=== PATIENT | male | born 1935 | race Caucasian/White ===

== ENCOUNTER 2019-06-21 10:32 | Inpatient (IN) | payer MEDICARE, BC, OTHER ==
[~2019-06-21] VITALS: Ht 170.2 cm; Wt 94.3 kg
[2019-06-21 16:28] VITALS: BP 149/73
[2019-06-21] MEDS ORDERED: QUIN40TA26 PO (17:00)
[2019-06-21] MEDS ORDERED: ALLO100T PO (17:00)
[2019-06-21] MEDS ORDERED: OMEP10CA78 PO (17:00)
[2019-06-21] MEDS ORDERED: MIRA0.5T PO (17:00)
[2019-06-21] MEDS ORDERED: HYDR25TAB PO (17:00)
[2019-06-21] MEDS ORDERED: CELE1CAP7 PO (17:00)
[2019-06-21] MEDS ORDERED: TRAM50TA2 PO (17:09)
[2019-06-21] MEDS ORDERED: LIDO5DIS41 TD (17:09)
[2019-06-21] MEDS ORDERED: APAP325T4 PO (17:09)
[2019-06-21] MEDS ORDERED: MIRA1TAB3 PO (17:09)
[2019-06-21] MEDS ORDERED: PANT40TA3 PO (17:09)
[2019-06-21] MEDS ORDERED: HYDR-3713 PO (17:09)
[2019-06-21] MEDS ORDERED: CLIN1INJ IV (17:11)
[2019-06-21] MEDS ORDERED: CEFTINJ IV (17:11)
[2019-06-21] MEDS ORDERED: traMADol 50 MG TAB PO PRN (17:30)
[2019-06-21] MEDS: PIPERACILLIN/TAZOBACTAM SOD 3.375 GM in D5W MINI-BAG PLUS 50 ML IV SCH (18:45)
[2019-06-21 18:48] LABS: HEMATOCRIT 41.8 % (42.0-52.0); HEMOGLOBIN 14.5 g/dl (13.5-17.5); MEAN CORPUSCULAR HEMOGLOBIN 34.7 pg (27.0-33.0); MEAN CORPUSCULAR HGB CONC 34.7 g/dl (32.0-36.5); PLATELET COUNT, AUTOMATED 179 10^3/uL (150-450); RED BLOOD COUNT 4.18 10^6/uL (4.30-6.10); WHITE BLOOD COUNT 11.2 10^3/uL (4.0-10.0)
[2019-06-21 19:11] LABS: INR 1.22; PROTHROMBIN TIME 15.1 SECONDS (11.8-14.0)
[2019-06-21 19:19] LABS: ALBUMIN 1.9 GM/DL (3.2-5.2); ALT/SGPT 38 U/L (12-78); BILIRUBIN,TOTAL 1.1 MG/DL (0.2-1.0); BLOOD UREA NITROGEN 25 MG/DL (7-18); CALCIUM LEVEL 8.6 MG/DL (8.8-10.2); CARBON DIOXIDE LEVEL 25 MEQ/L (21-32); CHLORIDE LEVEL 109 MEQ/L (98-107); CREATININE FOR GFR 1.12 MG/DL (0.70-1.30); GLOMERULAR FILTRATION RATE > 60.0 (>35); GLUCOSE, FASTING 105 MG/DL (70-100); POTASSIUM SERUM 3.9 MEQ/L (3.5-5.1); SODIUM LEVEL 140 MEQ/L (136-145); TOTAL PROTEIN 5.6 GM/DL (6.4-8.2)
[2019-06-21] MEDS ORDERED: ISOVUE-370 76% 100ML VIAL (Q9967) As Ordered ONE (19:29)
[2019-06-21] MEDS ORDERED: VANCOMYCIN HCL 750 MG, VIAL MATE ADAPTER 1 EACH in D5W 250 ML IV ONE (20:00)
--- NOTE | 2019-06-21 20:09 | HPEPDOC ---
General Date of Admission Jun 21, 2019 at 16:34 Date of Service: Jun 21, 2019 Attending Physician: SELENE JOHNSON MD Chief Complaint The patient is a 83-year-old male admitted with a reason for visit of Progessive Cellulitis. Source: Patient Exam Limitations: No limitations Timing/Duration: Day(s) Severity: Severe History of Present Illness 83 yo M with a history of PVD, gout, hemochromatosis who presents as a transfer from [facility] for worsening RLE cellulitis with c/f necrotizing fasciitis +/- vascular comprise. He was admitted at [facility] for cellulitis during which he was noted to have RLE erythema to the subknee that was hot to touch. He had a CT of the extremity that showed subcutaneous edema and skin thickening but no evidence of SQ gas and no drainable fluid. He was initially placed on empiric zosyn but after blood cultures and RLE wound cultures grew pansensitive Ecoli he was de-escalated to ceftriaxone. On day 5 he was noted to have markedly worsening of the erythema now tracking to the groin and buttocks with several bullae one of which had burst and was weeping in addition to the black/semi eschar midshin wound and plantar subgreat toe wounds that were present at presentation. He was otherwise afebrile and WBC remained mildly elevated to 10.6 with a CRP of [address] Zapata at [facility] requested his transfer with concern for necrotizing fasciitis and for evaluation by surgical services. On arrival, his leg was exquisitely painful. The wounds were as described above and firm erythematous skin and non-palpable RLE DP pulse, while it had 3+ edema to to the thighs. Home Medications Scheduled Allopurinol (Allopurinol) 100 Mg Tablet, 100 MG PO DAILY, (Reported) Ceftriaxone in Is-Osm Dextrose (Ceftriaxone 1 gm Piggyback) 1 Gm/50 Ml Froz.maycol y, 1,000 MG IV DAILY, (Reported) Celecoxib (Celecoxib) 100 Mg Capsule, 100 MG PO BID, (Reported) Clindamycin in 0.9 % Sod Chlor (Clindamycin 600 mg/50 ml-Ns) 600 Mg/50 Ml Piggyback, 1 DOSE IV Q8H, (Reported) Hydrochlorothiazide (Hydrochlorothiazide) 25 Mg Tablet, 25 MG PO DAILY, (Reported) Lidocaine (Lidoderm) 5% Adh..patch, 1 PATCH TD DAILY, (Reported) Remove patch after 12 hours LOWER BACK Pantoprazole Sodium (Pantoprazole Sodium) 40 Mg Tablet.dr, 40 MG PO DAILY, (Reported) ON [id number] AT HOME Pramipexole Di-HCl (Mirapex) 0.5 Mg Tablet, 0.5 MG PO DAILY, (Reported) Pramipexole Di-HCl (Mirapex) 1 Mg Tablet, 1 MG PO DAILY, (Reported) WAS TAKING 0.5MG AT HOME Quinapril HCl (Quinapril HCl) 40 Mg Tablet, 40 MG PO DAILY, (Reported) Scheduled PRN Acetaminophen (Acetaminophen) 325 Mg Tablet, 650 MG PO Q4H PRN for PAIN, (Reported) Hydrocodone/Acetaminophen (Hydrocodone-Acetamin 5-325 mg) 1 Each Tablet, 1 TAB PO Q4H PRN for PAIN, (Reported) MDD 4 Omeprazole (Omeprazole) 10 Mg Capsule.dr, 10 MG PO DAILY PRN for GI UPSET, (Reported) Tramadol HCl (Tramadol HCl) 50 Mg Tablet, 50 MG PO Q6H PRN for PAIN, (Reported) Allergies Coded Allergies: tramadol (Unverified Allergy, Unknown, 06/21/19) Past Medical History Medical History AWA gout PVD hemochromatosis HTN PIERCE metastatic carcinoid A-FIB/CHADSVASC A-FIB History Current/History of A-Fib/PAF?: No Current PO Anticoag Therapy: No Age/Risk Factor Scoring CHADSVASC: CHADSVASC Response (Comments) Value Age Risk Factor Age >/= 75 years old 2 Gender Risk Factor Male 0 Hx of CHF No 0 Hx of HTN Yes 1 Hx of Stroke/TIA/or VTE No 0 Hx of Diabetes No 0 Hx of Vascular Disease Yes 1 Total 4 Treatment Treatment ordered: NONE Reason Anticoagulant not given: Not indicated/[id number] Review of Systems Constitutional: Denies: Chills, Fever, Night Sweats Eyes: Denies: Pain, Vision change ENT: Denies: Head Aches, Ear Pain, Dysphagia Skin: Reports: Lesions, Breakdown; Denies: Rash Pulmonary: Denies: Dyspnea, Cough Cardiovascular: Denies: Chest Pain, Palpitations, Orthopnea, Paroxysmal Noc. Dyspnea, Lt Headedness Gastrointestinal: Denies: Nausea, Vomiting, Abdominal Pain, Diarrhea Genitourinary: Reports: Other Symptoms (has jain in place for monitoring); Denies: Dysuria, Frequency, Incontinence, Retention Hematologic: Denies: Bruising, Bleeding Excessively Endocrine: Denies: Polydipsia, Polyphagia, Polyuria, Heat Intolerance, Cold Intolerance, Other Endocrine Sx Musculoskeletal: Reports: Leg Pain (RLE) Neurological: Denies: Weakness, Numbness, Change in speech, Confusion Psych: Reports: Mood Normal; Denies: Depression, Memory Issues Physical Examination General Exam: Positive: Alert, No Acute Distress Eye Exam: Positive: PERRLA, Conjunctiva & lids normal, EOMI; Negative: Sclera icteric ENT Exam: Positive: Atraumatic, Mucous membr. moist/pink, Pharynx Normal Neck Exam: Positive: Supple; Negative: JVD, thyromegaly Chest Exam: Positive: Clear to auscultation, Normal air movement Heart Exam: Positive: Rate Normal, Regular Rhythm, Normal S1, Normal S2; Negative: Murmurs, Rubs Abdomen Exam: Positive: Normal bowel sounds, Soft, Other (obese); Negative: Tenderness, Hepatospenomegaly Extremity Exam: Positive: Edema (R>>L lower extremities), Tenderness (exquisite tenderness in RLE), Swelling (RLE with firm swelling), Other (erythema now tracking to the groin and buttocks with several bullae one of which had burst and was weeping in addition to the black/semi eschar midshin wound and plantar subgreat toe wounds ); Negative: Normal pulses (not palpable on R, palpable on LLE) Skin Exam: Positive: Breakdown, Lesion, Other skin issue (erythema now tracking to the groin and buttocks with several bullae one of which had burst and was weeping in addition to the black/semi eschar midshin wound and plantar subgreat toe wounds ); Negative: Nl turgor and temperature (hot RLE, cool LLE) Neuro Exam: Positive: Normal Speech, Cranial Nerves 3-12 NL Psych Exam: Positive: Mental status NL, Mood NL, Oriented x 3 Vital Signs Vital Signs Date Time Temp Pulse Resp B/P (MAP) Pulse Ox O2 Delivery O2 Flow Rate FiO2 06/21/19 16:28 99.2 79 20 149/73 (98) 98 06/21/19 16:15 Room Air Laboratory Data Labs 24H Laboratory Tests 2 06/21/19 18:32: Nucleated Red Blood Cells % (auto) 0.0, Prothrombin Time 15.1H, Prothromb Time International Ratio 1.22, Anion Gap 6L, Glomerular Filtration Rate > 60.0, Lactic Acid Level 1.2, Calcium Level 8.6L, Total Bilirubin 1.1H, Aspartate Amino Transf (AST/SGOT) 33, Alanine Aminotransferase (ALT/SGPT) 38, Alkaline Phosphata se 114, Total Protein 5.6L, Albumin 1.9L, Albumin/Globulin Ratio 0.51L 06/21/19 18:51: CBC/BMP Laboratory Tests 06/21/19 18:32 Microbiology Microbiology 06/21/19 Blood Culture, Received Pending 06/21/19 Blood Culture, Received Pending Assessment/Plan 83 yo M with PVD who is being transferred from [facility] for worsening cellulitis with concern for necrotizing fasciitis and vascular compromise despite ceftriaxone therapy for previously identified pansensitive E.coli with open wounds suggesting possibility of further translocation of other organisms that may be ceftriaxone resistant vs. vascular challenges that are driving the infection. I have started him on empiric vanc/piptazo, consulted vascular mukherjee rgery and ordered a stat CTA, while repeating cultures. worsening RLE cellulitis with c/f nec fasciitis with chronic wounds being source of varied organisms as well significant vascular insufficiency: -stat CTA of RLE -empiric vanc/zosyn -MRSA PCR -Blood cultures -wound cultures -[place] for pain management Q4H PRN RLE wounds: -wound consult, though I imagine Dr. Skelton will give recs as well Gout: -continue allopurinol RLS: -continue pramipexole GERD: -continue protonix DVT ppx: heparin Diet: regular Plan / VTE VTE Prophylaxis Ordered?: Yes SELENE JOHNSON MD Jun 21, 2019 20:09
--- NOTE | 2019-06-21 20:36 | REPVR ---
PROCEDURE INFORMATION: Exam: CTA Right Lower Extremity With Contrast Exam date and time: 06/21/2019 7:49 PM Age: 83 years old Clinical indication: Swelling, leg or foot; Additional info: Rle c/f nec fasc with vascular compromise TECHNIQUE: Imaging protocol: CTA images of the Right lower extremity with intravenous contrast using CT angiography protocol. 3D rendering: MIP and/or 3D reconstructed images were created by the technologist. MIP and/or 3D reconstructed images were created and reviewed. Radiation optimization: All CT scans at this facility use at least one of these dose optimization techniques: automated exposure control; mA and/or kV adjustment per patient size (includes targeted exams where dose is matched to clinical indication); or iterative reconstruction. Contrast material: ISOVUE 370; Contrast volume: 100 ml; Contrast route: IV; COMPARISON: No relevant prior studies available. FINDINGS: Right iliac arteries: Atherosclerosis and less than 50% stenosis of the right common iliac artery. Right femoral/popliteal arteries: No occlusion or significant stenosis. Right infrapopliteal arteries: Atherosclerosis is identified of the right tibioperoneal trunk, without significant stenosis. No occlusion of the right infrapopliteal arteries. Bladder: There is a small focus of gas within the bladder anteriorly, which is likely iatrogenic or infectious. Wall thickening is identified of the superior aspect of the bladder, which can be contributed by cystitis although infiltrating pathology cannot be excluded. Intraperitoneal space: No peripherally enhancing loculated collection of fluid within the right lower extremity to suggest abscess. A calcified lymph node or mass is identified within the abdominal peritoneum measuring 3.1 x 2.0 cm. This extends out of the field of view of this study. There is a small amount of free fluid within the pelvis. Bones/joints: Additional swelling is identified lateral to the right hip. Small right patellofemoral joint effusion. Spurring and erosive changes identified of the 1st metatarsal head, likely secondary to arthropathy. A calcaneal spur is visualized. Osteomyelitis cannot be excluded on CT imaging. Degenerative changes are visualized involving the right knee. Soft tissues: Soft tissue swelling of the right lower extremity visualized. Skin thickening is visualized. These findings are suggestive of cellulitis. No foci of gas are identified within the soft tissues of the right lower extremity. Hypodense lipomas are identified within the medial head of the gastrocnemius muscle, the largest measuring 1.4 x 0.8 x 6.3 cm. A trophic changes are identified of the musculature of the right foot. Mild herniation of fat into the left inguinal canal. Eventration of the ventral abdominal wall with mild herniation of fat into the umbilicus. Mineralized densities visualized adjacent to the bilateral ischial tuberosities. Soft tissue swelling of the heel pad is visualized. Other findings: Enlarged inguinal lymph nodes are identified bilaterally. IMPRESSION: 1. Soft tissue swelling of the right lower extremity visualized. Skin thickening is visualized. These findings are suggestive of cellulitis. No foci of gas are identified within the soft tissues of the right lower extremity. 2. Additional swelling is identified lateral to the right hip. 3. Atherosclerosis and less than 50% stenosis of the right common iliac artery. 4. Hypodense lipomas are identified within the medial head of the gastrocnemius muscle, the largest measuring 1.4 x 0.8 x 6.3 cm. 5. Enlarged inguinal lymph nodes are identified bilaterally. 6. A calcified lymph node or mass is identified within the abdominal peritoneum measuring 3.1 x 2.0 cm. This extends out of the field of view of this study. Correlation with a CT of the abdomen/pelvis is recommended. 7. There is a small amount of free fluid within the pelvis. 8. There is a small focus of gas within the bladder anteriorly, which is likely iatrogenic or infectious. Wall thickening is identified of the superior aspect of the bladder, which can be contributed by cystitis although infiltrating pathology cannot be excluded. 9. Additional findings described above. If further evaluation of the right lower extremity is clinically indicated, MRI is suggested. PROCEDURE INFORMATION: Exam: CTA Left Lower Extremity With Contrast Exam date and time: 06/21/2019 7:49 PM Age: 83 years old Clinical indication: Swelling, leg or foot; Additional info: Rle c/f nec fasc with vascular compromise TECHNIQUE: Imaging protocol: Computed tomographic angiography of the Left lower extremity with intravenous contrast. 3D rendering: MIP and/or 3D reconstructed images were created and reviewed. COMPARISON: No relevant prior studies available. FINDINGS: Left iliac arteries: Mild atherosclerosis of the left internal iliac artery. No significant stenosis or occlusion of the left iliac arteries. 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 The left superficial femoral artery and popliteal artery are patent. Left infrapopliteal arteries: No occlusion or significant stenosis. Bladder: There is a small focus of gas within the bladder anteriorly, which is likely iatrogenic or infectious. Wall thickening is identified of the superior aspect of the bladder, which can be contributed by cystitis although infiltrating pathology cannot be excluded. Intraperitoneal space: No peripherally enhancing loculated collection of fluid within the left lower extremity to suggest abscess. A calcified lymph node or mass is identified within the abdominal peritoneum measuring 3.1 x 2.0 cm. This extends out of the field of view of this study. There is a small amount of free fluid within the pelvis. Lymph nodes: Enlarged inguinal lymph nodes are identified bilaterally. Bones/joints: Small right patellofemoral joint effusion. Spurring and erosive changes identified of the 1st metatarsal head, likely secondary to arthropathy. Osteomyelitis cannot be excluded on CT imaging. Degenerative changes are visualized involving the left knee. Soft tissues: Mild soft tissue swelling within the left lower extremity at the level of the ankle and involving the heel pad. Additional swelling is identified lateral to the left hip. No foci of gas are identified within the soft tissues of the left lower extremity. A trophic changes are identified of the musculature of the left foot. Mild herniation of fat into the left inguinal canal. Eventration of the ventral abdominal wall with mild herniation of fat into the umbilicus. Mineralized densities visualized adjacent to the bilateral ischial tuberosities. IMPRESSION: 1. Atherosclerosis and mural thrombus involving the left common femoral artery, with less than 50% stenosis. 2. Mild soft tissue swelling within the left lower extremity at the level of the ankle and involving the heel pad. Additional swelling is identified lateral to the left hip. 3. Enlarged inguinal lymph nodes are identified bilaterally. 4. A calcified lymph node or mass is identified within the abdominal peritoneum measuring 3.1 x 2.0 cm. This extends out of the field of view of this study. Correlation with a CT of the abdomen/pelvis is recommended. 5. There is a small amount of free fluid within the pelvis. 6. There is a small focus of gas within the bladder anteriorly, which is likely iatrogenic or infectious. Wall thickening is identified of the superior aspect of the bladder, which can be contributed by cystitis although infiltrating pathology cannot be excluded. 7. Additional findings described above. Electronically signed by: Ron Rodriguez On 06/21/2019 20:36:01 PM
[2019-06-21] MEDS: DOCUSATE SODIUM 100 MG CAP PO SCH (21:00)
[2019-06-21] MEDS ORDERED: CelecoXIB (CeleBREX) 100 MG CAP PO SCH (21:00)
[2019-06-21] MEDS ORDERED: VANCOMYCIN HCL 1,000 MG, VIAL MATE ADAPTER 1 EACH in D5W 250 ML IV ONE (21:00)
[2019-06-21] MEDS: HEPARIN SOD (PORCINE) 5000UNITS/ML VIAL (J1644 PER 1000UNITS) SC SCH (21:29)
[2019-06-21] MEDS: **NOTE PATIENT COMMENT** MISC XX SCH (21:30)
[2019-06-21 22:00] VITALS: BP 146/73
[2019-06-21] MEDS: NORCO, ANEXSIA 5/325MG TABLET (HYDROcodone/ACETAMINOPHEN) PO PRN (22:05)
--- NOTE | 2019-06-21 22:39 | PHACANCOPD ---
PHARMACY VANCOMYCIN DOSING Pt Demographics Demographics Patient Age:83 , Weight: , Gender: male Adjusted Body Weight Date: 06/21/19, Adjusted Body Weight: [80] Kg Events Past 24 Hours Events Past 24 Hours: NO: Dialysis, Diuretic Therapy, Change in CrCl, Fever, Elevation in WBC, Pending Diagnostics, Pending Procedures, Other Vancomycin Vancomycin indication: SSSI RLE CELLULITIS w/NEC FASC Vancomycin Target Ranges: 15-20 mcg/ml Vancomycin Load Y/N: Yes Load Dose Date Time Vancomycin Load Dose: 1750MG Date: 06/21/19 Time: 20:00 Vancomycin Dose Date: 06/22/19. Current Vancomycin Dose: [1GM IV Q18H (08:00] Intermittent Dosing?: No Labs Labs Laboratory Tests 06/21/19 18:32 Micro Microbiology 06/21/19 Blood Culture, Received Pending 06/21/19 Blood Culture, Received Pending Creatinine Clearance Date:06/21/19. Creatinine Clearance: [>60ml/min]. Pending Labs 06/23/19: VANCO TROUGH 20:00 DOSE (19:00) Assessment and Plan Maintaining Current Dose?: Yes Reason for dose change: No Dose Change Pharmacist Note Pharmacist Note Date: 06/21/19. PharmD note: VANCO 1.75GM LOAD DOSE 20:00 FOLLOWED BY 1GM IV Q18H STARTING @08:00 06/22/19 A VANCO TROUGH WILL BE DRAWN 06/22 60MIN PRIOR TO HIS 20:00 DOSE (19:00). [facility] Jun 21, 2019 22:39
[2019-06-22] MEDS: PIPERACILLIN/TAZOBACTAM SOD 3.375 GM in D5W MINI-BAG PLUS 50 ML IV SCH ×5 (00:14→23:42)
[2019-06-22] MEDS ORDERED: KETOROLAC 30 MG/ML 1ML VIAL (J1885 PER 15MG) IV ONE (00:15)
[2019-06-22] MEDS: rOPINIRole 2MG TAB PO SCH ×2 (00:30→21:15)
[2019-06-22] MEDS: HEPARIN SOD (PORCINE) 5000UNITS/ML VIAL (J1644 PER 1000UNITS) SC SCH ×3 (05:53→21:15)
[2019-06-22 06:00] VITALS: BP 105/57
[2019-06-22 06:29] LABS: HEMATOCRIT 37.8 % (42.0-52.0); HEMOGLOBIN 13.1 g/dl (13.5-17.5); MEAN CORPUSCULAR HEMOGLOBIN 34.6 pg (27.0-33.0); MEAN CORPUSCULAR HGB CONC 34.7 g/dl (32.0-36.5); MEAN CORPUSCULAR VOLUME 99.7 fl (80.0-96.0); PLATELET COUNT, AUTOMATED 189 10^3/uL (150-450); RED BLOOD COUNT 3.79 10^6/uL (4.30-6.10); WHITE BLOOD COUNT 11.1 10^3/uL (4.0-10.0)
[2019-06-22 06:58] LABS: BLOOD UREA NITROGEN 24 MG/DL (7-18); CALCIUM LEVEL 8.3 MG/DL (8.8-10.2); CARBON DIOXIDE LEVEL 22 MEQ/L (21-32); CHLORIDE LEVEL 110 MEQ/L (98-107); CREATININE FOR GFR 1.19 MG/DL (0.70-1.30); GLOMERULAR FILTRATION RATE > 60.0 (>35); GLUCOSE, FASTING 95 MG/DL (70-100); MAGNESIUM LEVEL 1.8 MG/DL (1.8-2.4); POTASSIUM SERUM 4.2 MEQ/L (3.5-5.1); SODIUM LEVEL 140 MEQ/L (136-145)
[2019-06-22] MEDS: VANCOMYCIN HCL 1,000 MG, VIAL MATE ADAPTER 1 EACH in D5W 250 ML IV SCH (08:15)
[2019-06-22] MEDS: PANTOPRAZOLE 40MG TAB (PROTONIX) PO SCH (08:16)
[2019-06-22] MEDS: PRAMIPEXOLE 1 MG TAB PO SCH (08:16)
[2019-06-22] MEDS: allopurinoL 100 MG TAB PO SCH (08:16)
[2019-06-22] MEDS: DOCUSATE SODIUM 100 MG CAP PO SCH ×3 (08:17→21:14)
[2019-06-22] MEDS: hydroCHLOROthiazide 25 MG TAB PO SCH ×2 (08:17→08:19)
[2019-06-22] MEDS: LIDOCAINE 5% (LIDODERM) PATCH TD SCH (08:19)
--- NOTE | 2019-06-22 08:25 | CR.PDOC ---
General Date of Consultation: Jun 22, 2019 Referring Provider: SELENE JOHNSON MD Consultation REASON FOR CONSULTATION/CHIEF COMPLAINT: Right lower extremity swelling and cellulitis with concern for vascular insufficiency HISTORY OF PRESENT ILLNESS: Mr. Bryan is a very pleasant 83-year-old gentleman who was recently transferred to our hospital for worsening ascending cellulitis of the right lower extremity and swelling. He was initially treated with broad- spectrum antibiotics in an outside hospital, then the antibiotic coverage was narrowed and subsequently the patient had worsening cellulitis that extended up to the buttocks and groin. His leg became exquisitely tender and he was transferred to [facility] for higher level of care. I was contacted regarding concern for arterial insufficiency due to nonpalpable pulses, but Doppler signals were not attempted. I was also told that there was concern for necrotizing fasciitis. Based on this information, I asked for a CTA of the lower extremities to evaluate arterial flow and tissue quality. I reviewed that CT and discussed my findings with the hospitalist last night. There is no necrotizing fasciitis, no subcutaneous air, no pockets of fluid, no abscess, no need for urgent lower extremity surgical intervention from a tissue standpoint. He did burt ve significant edema and fat stranding suggestive of cellulitis, which correlates with my exam today. I also evaluated the arterial flow. The patient has mild iliac arterial disease that is not significantly flow-limiting on the right, and distal flow is intact. This correlates with my exam findings today with triphasic signals at the DP and PT on Doppler. I did not see signs of DVT on the CTA. The patient has been appropriately started on broad-spectrum antibiotics. The nurse is sending cultures. The left leg also has a small open area on the posterior lower ankle. It appears the patient had a soft tissue injury to his pretibial area on the right which subsequently led to cellulitis and infection. I also feel he likely has a component of venous insufficiency, which has not been yet evaluated. Ultimately, I think the patient will benefit from Unna boot compression, but right now I think more frequent dressing changes are needed until the infection is improved. However, we certainly can elevate the lower extremities above the level of the heart. This is very important. I did put the patient's bed up on the bar to elevate the legs and both legs are on pillows to float the heels. Bot h legs were cleaned with wound cleanser irrigated and dried. Hydrofera Blue was placed over the open placed her on the pretibial area and over the original wound that is intact eschar. No purulent drainage is noted however there is significant serous drainage due to edema and open skin, so a nonadherent absorbent pad has been placed as well. The leg was loosely wrapped with Kerlix but eventually will need full compression. We also cleansed the left ankle and dressed this with Hydrofera Blue, nonadherent absorbent pad and Kerlix. I think a heel lift boot would be helpful for the left leg. I discussed this with the nurse. She was very helpful. I discussed with the patient that at this point no surgical intervention is needed. His arterial flow is good and no vascular intervention is needed. I would like to obtain a venous insufficiency study, although I'm not sure this can be done right away. It is not urgent and can be done at any time during his hospitalization. It might be best to wait a few days for the sensitivity in his skin to resolve so the ultrasound does not so painful as it does require quite a bit of pressure on the skin to do that study. I would recommend daily dressing changes, and possibly twice or 3 times a day if dressings becomes saturated. I do recommend elevation of the bilateral lower extremities above the level of the heart to help with swelling, which is already improved from yesterday. I would discuss with the wound care nurse possibly considering Unna boot therapy at least for the right lower extremity to help with swelling and long-term healing, in a few days after the cellulitis has improved. ALLERGIES: Please see below. HOME MEDICATIONS: Please see below. PAST MEDICAL HISTORY: HTN, gout, shoulder and knee pain, GERD PAST SURGICAL HISTORY: Cholecystectomy FAMILY HISTORY: Heart disease, cancer SOCIAL HISTORY: Patient says he lives at home alone and no one takes care of him. He denies tobacco or illicit drug use. Occasional alcohol use. REVIEW OF SYSTEMS: CONSTITUTIONAL: Malaise, poor appetite HEENT: Denies changes in hearing. Vision is worsening. Denies dysphagia. CARDIOVASCULAR: Denies chest pain. RESPIRATORY: Denies shortness of breath GENITOURINARY: Denies dysuria MUSCULOSKELETAL: Reports trouble walking, due to pain in his knee and shoulder GASTROINTESTINAL: Denies nausea vomiting diarrhea. Positive GERD, costipation SKIN: Positive cellulitis NEUROLOGICAL: Denies headaches strokes or seizures PSYCHIATRIC: Denies anxiety positive depression ENDOCRINE: Denies diabetes or thyroid disease HEMATOLOGIC/LYMPHATIC: Denies anemia ALLERGIC/IMMUNOLOGIC: Denies seasonal allergies PHYSICAL EXAMINATION: VITAL SIGNS: Please see below. GENERAL APPEARANCE: Medically stable no acute distress HEENT: Normocephalic TMI vision grossly intact RESPIRATORY: Clear to auscultation CARDIOVASCULAR: Regular rate and rhythm ABDOMEN: Soft nontender nondistended EXTREMITIES: Left lower extremity +1 edema, biphasic and triphasic signals at th e DP and PT, small posterior ankle wound with a little bit of bloody drainage, skin otherwise intact. Brawny darkening of the skin suggestive of chronic venous insufficiency. Dressed with Hydrofera Blue, absorptive nonadherent pad, Kerlix and heel floated. Right lower extremity 2+ pitting edema. Brawny skin changes suggestive of chronic venous insufficiency. Large open blister with denuded skin on the pretibial area. Just lateral to this is a darkened eschar. Cellulitic changes including erythema and induration present over the lower extremity and streaking up the thigh to the buttocks and into the groin. DP and PT signals are triphasic. Foot is warm and well-perfused with less than 1 second capillary refill. Leg redressed with Hydrofera Blue, nonadherent absorptive pad, Kerlix, and heel floated. NEUROLOGICAL: Alert and oriented 3, moves all extremities equally. PSYCHIATRIC: Pleasant and cooperative LABORATORY DATA: Please see below. ASSESSMENT/PLAN: Very pleasant 83-year-old gentleman with right lower extremity chronic right calf wound, denuded blister, and worsening ascending cellulitis. 1. For right and left lower extremities, recommend local wound care, follow cultures, broad-spectrum antibiotics, elevation of the bilateral lower extremities above the level of the heart with heels floated off the bed. Consider offloading boot for left lower extremity. After a few days, when cellulitis starts to resolve and pain subsides, would recommend discuss with wound care nurse Hydrofera Blue over open areas and eschar, and Unna boots for compression. 2. Venous insufficiency study to evaluate for possible future intervention if venous insufficiency is diagnosed. No urgency for study or intervention. Main treatment will be IV antibiotics and wound care and elevation. 3. Encourage patient to eat as much protein is possible to help with wound healing. Protein malnutrition dramatically slows down wound healing. We appreciate the opportunity to participate in the care of this patient. Vital Signs/I&O Vital Signs Date Time Temp Pulse Resp B/P (MAP) Pulse Ox O2 Delivery O2 Flow Rate FiO2 06/22/19 06:00 96.5 58 20 105/57 (73) 96 Room Air I&O- Last 24 Hours up to 6 AM 06/22/19 06:00 Intake Total 1085 ml Output Total 1550 ml Balance -465 ml Laboratory Data Labs 24H Laboratory Tests 2 06/21/19 18:32: Nucleated Red Blood Cells % (auto) 0.0, Prothrombin Time 15.1H, Prothromb Time International Ratio 1.22, Anion Gap 6L, Glomerular Filtration Rate > 60.0, Lactic Acid Level 1.2, Calcium Level 8.6L, Total Bilirubin 1.1H, Aspartate Amino Transf (AST/SGOT) 33, Alanine Aminotransferase (ALT/SGPT) 38, Alkaline Phosphatase 114, Total Protein 5.6L, Albumin 1.9L, Albumin/Globulin Ratio 0.51L 06/21/19 18:51: Methicillin-Resist S.aureus DNA PCR NOT DETECTED 06/22/19 05:46: Nucleated Red Blood Cells % (auto) 0.0, Anion Gap 8, Glomerular Filtration Rate > 60.0, Calcium Level 8.3L, Magnesium Level 1.8 CBC/BMP Laboratory Tests 06/21/19 18:32 06/22/19 05:46 Microbiology Microbiology 06/21/19 Blood Culture, Received Pending 06/21/19 Blood Culture, Received Pending Allergies Coded Allergies: tramadol (Unverified Allergy, Unknown, 06/21/19) Home Medications Scheduled Allopurinol (Allopurinol) 100 Mg Tablet, 100 MG PO DAILY, (Reported) Ceftriaxone in Is-Osm Dextrose (Ceftriaxone 1 gm Piggyback) 1 Gm/50 Ml Froz .piggy, 1,000 MG IV DAILY, (Reported) Celecoxib (Celecoxib) 100 Mg Capsule, 100 MG PO BID, (Reported) Clindamycin in 0.9 % Sod Chlor (Clindamycin 600 mg/50 ml-Ns) 600 Mg/50 Ml Piggyback, 1 DOSE IV Q8H, (Reported) Hydrochlorothiazide (Hydrochlorothiazide) 25 Mg Tablet, 25 MG PO DAILY, (Reporte d) Lidocaine (Lidoderm) 5% Adh..patch, 1 PATCH TD DAILY, (Reported) Remove patch after 12 hours LOWER BACK Pantoprazole Sodium (Pantoprazole Sodium) 40 Mg Tablet.dr, 40 MG PO DAILY, (Reported) ON [id number] AT HOME Pramipexole Di-HCl (Mirapex) 0.5 Mg Tablet, 0.5 MG PO DAILY, (Reported) Pramipexole Di-HCl (Mirapex) 1 Mg Tablet, 1 MG PO DAILY, (Reported) WAS TAKING 0.5MG AT HOME Quinapril HCl (Quinapril HCl) 40 Mg Tablet, 40 MG PO DAILY, (Reported) Scheduled PRN Acetaminophen (Acetaminophen) 325 Mg Tablet, 650 MG PO Q4H PRN for PAIN, (Reported) Hydrocodone/Acetaminophen (Hydrocodone-Acetamin 5-325 mg) 1 Each Tablet, 1 TAB PO Q4H PRN for PAIN, #20 (Reported) MDD 4 Omeprazole (Omeprazole) 10 Mg Capsule.dr, 10 MG PO DAILY PRN for GI UPSET, (Reported) Tramadol HCl (Tramadol HCl) 50 Mg Tablet, 50 MG PO Q6H PRN for PAIN, (Reported) SHELTON KEBEDE MD Jun 22, 2019 08:25
[2019-06-22] MEDS ORDERED: PRAMIPEXOLE 0.25 MG TAB PO SCH (09:00)
[2019-06-22] MEDS: NORCO, ANEXSIA 5/325MG TABLET (HYDROcodone/ACETAMINOPHEN) PO PRN ×3 (12:00→23:42)
[2019-06-22 14:00] VITALS: BP 106/58
--- NOTE | 2019-06-22 14:17 | IPNPDOC ---
Text Note Date of Service The patient was seen on 06/22/19. NOTE S: Pt examined at bedside. Is feeling better since admission. Right leg still is painful and warm and erythematous, but improving. No fever or chills or events overnight. PE: Vitals: see below General: NAD, A&Ox3, resting comfortably HEENT: NCAT, EOMI, anicteric sclera, MMM CV: distant sounding, RRR, no murmurs or clicks or rub. Trace edema LLE, 2+ RLE RESP: CTAB, no w/r/r/ ABD: soft, NT, ND. Benign EXTREMITIES: 2+ radial pulses b/l & LLE, barely palpable RLE, able to move all extremities NEURO: no focal deficits. Follows commands. Slightly mumbled speech at baseline SKIN: right LE warmth, erythema, tenderness receding slightly from the outlined area from admission, continues up the groin & buttock, LLE without visible rash. Chronic venous stasis changes A/P: 83 yo M is a direct tx from [facility] for worsening of his RLE serjio lulitis and concern of nec fasc. Blood & wound cultures there reportedly grew pansenstive E.Coli was was de-escalated from Zosyn to Ceftriaxone, but on Day 5, had worsening erythema up his entire right leg with weeping bullae and blackening blair wound/eschar. 1. Right lower extremity cellulitis in setting of PVD -Area of warmth, erythema, tenderness RLE. Likely 2/2 open wounds that became infected -Previously grew pansenstive E.Coli, but concern for additional organisms given worsening wounds & failed Ceftriaxone at [facility] -CTA of RLE: "Soft tissue swelling of the right lower extremity visualized. Skin thickening is visualized. These findings are suggestive of cellulitis. No foci of gas" - Dr. Man consulted, appreciate input: no need for OR, no nec fasc. Wounds s/p irrigation, wound care -blood & wound cultures pending -improving on current abx. Continue Vanc, Zosyn & monitor encircled area & inflamm markers -continue wound care 2. Mural thrombus in left common femoral artery - noted on CTA. < 50% occlusion - 2+ pulses LLE, well-perfused - will discuss with Vasc sx regarding options -continue on DVT ppx 3. PVD - extensive atherosclerosis noted on imaging - difficult to palpate pulse RLE. Identified with doppler usage - Per Vasc Sx: distal flow intact. Elevate legs, Unna boot, no vasc intervention needed currently - Venous insufficiency study when cellulitis improves HTN controlled, continue home Quinapril & HCTZ with hold parameters GERD continue home ppi AWA use CPAP Restless Legs continue Pramipexole Gout stable, continue allopurinol Hemochromotosis o/p f/u PIERCE stable. No transaminitis. Monitor with o/p f/u Hx of Metatstatic Carcinoid o/p f/u DVT ppx: heparin sc DISPO: pending clinical improvement & cultures. VS,Fishbone, I+O VS, Fishbone, I+O Laboratory Tests 06/21/19 18:32 06/22/19 05:46 Vital Signs Date Time Temp Pulse Resp B/P (MAP) Pulse Ox O2 Delivery O2 Flow Rate FiO2 06/22/19 12:33 15 06/22/19 06:00 96.5 58 105/57 (73) 96 Room Air I&O- Last 24 Hours up to 6 AM 06/22/19 06:00 Intake Total 1085 ml Output Total 1550 ml Balance -465 ml GME ATTESTATION GME ATTESTATION My faculty preceptor for this patient encounter was physically present during the encounter and was fully available. All aspects of the patient interview, examination, medical decision making process, and medical care plan development were reviewed and approved by the faculty preceptor. The faculty preceptor is aware and concurs with the plan as stated in the body of this note and will attest to such by his/her cosignature. ATTENDING NOTE I, Selene Johnson, have independently examined this patient and performed my own physical exam, as well as reviewed the documentation and edited where necessary. I have discussed in detail with the resident / student the findings and plan of treatment as documented by the resident / student and edited their note. I agree with their findings and treatment plan and have edited their documentation. On transfer to us from [facility] there was c/f worsening cellulitis vs. nec fasc but on imaging appears to have been worsening cellulitis without evidence of nec fasc. I had empirically consulted Dr. Skelton given worsening swelling, cellulitis and history of PVD and thankfully the CTA showed adequate flow with a partial mural thrombus on the L that does not require vascular intervention at this time. Wounds have been debrided and dressed and erythema is starting recede since starting him on vanc/zosyn. Wound cultures and blood cultures are pending. We will continue to follow the patient during this hospital stay. YAZ FELDER DO Jun 22, 2019 14:17 SELENE JOHNSON MD Jun 23, 2019 07:28
[2019-06-22 18:14] VITALS: BP 172/75
[2019-06-22] MEDS: **NOTE PATIENT COMMENT** MISC XX SCH (21:15)
[2019-06-22 22:00] VITALS: BP 123/59
[2019-06-23] MEDS: VANCOMYCIN HCL 1,000 MG, VIAL MATE ADAPTER 1 EACH in D5W 250 ML IV SCH ×2 (01:43→20:26)
[2019-06-23] MEDS: HEPARIN SOD (PORCINE) 5000UNITS/ML VIAL (J1644 PER 1000UNITS) SC SCH ×3 (05:40→20:26)
[2019-06-23] MEDS: PIPERACILLIN/TAZOBACTAM SOD 3.375 GM in D5W MINI-BAG PLUS 50 ML IV SCH ×3 (05:41→17:13)
[2019-06-23 06:00] VITALS: BP 146/66
[2019-06-23 06:06] LABS: HEMATOCRIT 39.8 % (42.0-52.0); HEMOGLOBIN 13.6 g/dl (13.5-17.5); MEAN CORPUSCULAR HEMOGLOBIN 34.5 pg (27.0-33.0); MEAN CORPUSCULAR HGB CONC 34.2 g/dl (32.0-36.5); PLATELET COUNT, AUTOMATED 232 10^3/uL (150-450); RED BLOOD COUNT 3.94 10^6/uL (4.30-6.10); WHITE BLOOD COUNT 11.5 10^3/uL (4.0-10.0)
[2019-06-23] MEDS: NORCO, ANEXSIA 5/325MG TABLET (HYDROcodone/ACETAMINOPHEN) PO PRN ×2 (06:06→16:55)
[2019-06-23 06:33] LABS: BLOOD UREA NITROGEN 25 MG/DL (7-18); CALCIUM LEVEL 8.5 MG/DL (8.8-10.2); CARBON DIOXIDE LEVEL 22 MEQ/L (21-32); CHLORIDE LEVEL 108 MEQ/L (98-107); CREATININE FOR GFR 1.17 MG/DL (0.70-1.30); GLOMERULAR FILTRATION RATE > 60.0 (>35); GLUCOSE, FASTING 105 MG/DL (70-100); SODIUM LEVEL 137 MEQ/L (136-145)
[2019-06-23] MEDS: allopurinoL 100 MG TAB PO SCH (09:02)
[2019-06-23] MEDS: DOCUSATE SODIUM 100 MG CAP PO SCH ×2 (09:02→20:26)
[2019-06-23] MEDS: PRAMIPEXOLE 1 MG TAB PO SCH (09:02)
[2019-06-23] MEDS: hydroCHLOROthiazide 25 MG TAB PO SCH (09:02)
[2019-06-23] MEDS: PANTOPRAZOLE 40MG TAB (PROTONIX) PO SCH (09:03)
[2019-06-23] MEDS: LIDOCAINE 5% (LIDODERM) PATCH TD SCH (09:03)
[2019-06-23 14:00] VITALS: BP 149/76
--- NOTE | 2019-06-23 15:46 | IPNPDOC ---
Text Note Date of Service The patient was seen on 06/23/19. NOTE S: Pt examined at bedside. No new complaints or reported events overnight. Is afebrile with stable WBC. Right leg is less painful and erythema improving. No cp, sob, n/v/abd pain, new paresthesia. Underwent wound irrigation with Vasc Sx yesterday. PE: Vitals: see below General: NAD, A&Ox3, resting comfortably HEENT: NCAT, EOMI, anicteric sclera, MMM CV: distant sounding, RRR, no murmurs or clicks or rub. Trace edema LLE, 2+ RLE RESP: CTAB, no w/r/r/ ABD: soft, NT, ND. Benign EXTREMITIES: 2+ radial pulses b/l & LLE, barely palpable RLE, able to move all extremities NEURO: no focal deficits. Follows commands. Slightly mumbled speech at baseline SKIN: right LE warmth, erythema, tenderness present, but much improved from prior days, receding 1-2 inches from the outlined area, less erythematous and less tender. Chronic venous stasis changes. B/l shins in clear dry bandages A/P: 83 yo M is a direct tx from [facility] for worsening of his RLE cellulitis and concern of nec fasc. Blood & wound cultures there reportedly grew pansenstive E.Coli was was de-escalated from Zosyn to Ceftriaxone, but on Day 5, had worsening erythema up his entire right leg with weeping bullae and blackening blair wound/eschar. 1. Right lower extremity cellulitis in setting of PVD -Area of warmth, erythema, tenderness RLE. Likely 2/2 open wounds that became infected -Previously grew pansenstive E.Coli, but concern for additional organisms given worsening wounds & failed Ceftriaxone at [facility] -CTA of RLE: "Soft tissue swelling of the right lower extremity visualized. Skin thickening is visualized. These findings are suggestive of cellulitis. No foci of gas" - Dr. Man consulted, appreciate input: no need for OR, no nec fasc. Wo unds s/p irrigation, wound care -blood & wound cultures negative thus far -improving on current abx. Continue Vanc, Zosyn & monitor encircled area & inflamm markers -continue wound care as per Vasc Sx 2. Mural thrombus in left common femoral artery - noted on CTA. < 50% occlusion - 2+ pulses LLE, well-perfused - continue on DVT ppx - scheduled for b/l LE Doppler 06/24 per Vasc sx 3. PVD - extensive atherosclerosis noted on imaging - difficult to palpate pulse RLE. Identified with doppler usage - Per Vasc Sx: distal flow intact. Elevate legs, Unna boot, no vasc intervention needed currently - Vasc Sx recs: venous insufficiency study when cellulitis improves HTN controlled, continue home Quinapril & HCTZ with hold parameters GERD continue home ppi AWA use CPAP Restless Legs continue Pramipexole Gout stable, continue allopurinol Hemochromotosis o/p f/u PIERCE stable. No transaminitis. Monitor with o/p f/u Hx of Metatstatic Carcinoid o/p f/u DVT ppx: heparin sc DISPO: pending clinical improvement & cultures. VS,Fishbone, I+O VS, Fishbone, I+O Laboratory Tests 06/23/19 05:39 Vital Signs Date Time Temp Pulse Resp B/P (MAP) Pulse Ox O2 Delivery O2 Flow Rate FiO2 06/23/19 06:36 17 Room Air 06/23/19 06:00 98.5 70 146/66 (92) 99 l I&O- Last 24 Hours up to 6 AM 06/23/19 06:00 Intake Total 1480 ml Output Total 1150 ml Balance 330 ml GME ATTESTATION GME ATTESTATION My faculty preceptor for this patient encounter was physically present during the encounter and was fully available. All aspects of the patient interview, examination, medical decision making process, and medical care plan development were reviewed and approved by the faculty preceptor. The faculty preceptor is aware and concurs with the plan as stated in the body of this note and will att est to such by his/her cosignature. ATTENDING NOTE I, Celi Johnson, have independently examined this patient and performed my own physical exam, as well as reviewed the documentation and edited where necessary. I have discussed in detail with the resident / student the findings and plan of treatment as documented by the resident / student and edited their note. I agree with their findings and treatment plan and have edited their documentation. Mr. Bryan's cellulits continues to improve on empiric broad spectrum antibiotics and vascular surgery ordered some imaging to investigate venous insufficiency. YAZ FELDER DO Jun 23, 2019 14:32 CELI JOHNSON MD Jun 23, 2019 20:50
[2019-06-23] MEDS: rOPINIRole 2MG TAB PO SCH (20:52)
[2019-06-23] MEDS: **NOTE PATIENT COMMENT** MISC XX SCH (21:57)
[2019-06-23 22:00] VITALS: BP 150/68
[2019-06-24] MEDS: NORCO, ANEXSIA 5/325MG TABLET (HYDROcodone/ACETAMINOPHEN) PO PRN ×2 (00:04→21:10)
[2019-06-24] MEDS: PIPERACILLIN/TAZOBACTAM SOD 3.375 GM in D5W MINI-BAG PLUS 50 ML IV SCH ×5 (00:04→23:48)
[2019-06-24 06:00] VITALS: BP 143/70
[2019-06-24] MEDS: HEPARIN SOD (PORCINE) 5000UNITS/ML VIAL (J1644 PER 1000UNITS) SC SCH ×3 (06:07→21:08)
[2019-06-24 06:20] LABS: HEMATOCRIT 40.6 % (42.0-52.0); HEMOGLOBIN 14.1 g/dl (13.5-17.5); MEAN CORPUSCULAR HEMOGLOBIN 34.8 pg (27.0-33.0); MEAN CORPUSCULAR HGB CONC 34.7 g/dl (32.0-36.5); MEAN CORPUSCULAR VOLUME 100.2 fl (80.0-96.0); PLATELET COUNT, AUTOMATED 290 10^3/uL (150-450); RED BLOOD COUNT 4.05 10^6/uL (4.30-6.10); WHITE BLOOD COUNT 10.3 10^3/uL (4.0-10.0)
[2019-06-24 06:38] LABS: BLOOD UREA NITROGEN 18 MG/DL (7-18); CALCIUM LEVEL 8.6 MG/DL (8.8-10.2); CARBON DIOXIDE LEVEL 24 MEQ/L (21-32); CHLORIDE LEVEL 106 MEQ/L (98-107); CREATININE FOR GFR 1.08 MG/DL (0.70-1.30); GLOMERULAR FILTRATION RATE > 60.0 (>35); GLUCOSE, FASTING 109 MG/DL (70-100); POTASSIUM SERUM 4.2 MEQ/L (3.5-5.1); SODIUM LEVEL 138 MEQ/L (136-145)
[2019-06-24 09:04] LABS: C REACTIVE PROTEIN QUANTITATIV 8.66 MG/DL (0.00-0.30)
[2019-06-24] MEDS: LIDOCAINE 5% (LIDODERM) PATCH TD SCH (09:53)
[2019-06-24] MEDS: hydroCHLOROthiazide 25 MG TAB PO SCH (09:54)
[2019-06-24] MEDS: PANTOPRAZOLE 40MG TAB (PROTONIX) PO SCH (09:54)
[2019-06-24] MEDS: allopurinoL 100 MG TAB PO SCH (09:54)
[2019-06-24] MEDS: DOCUSATE SODIUM 100 MG CAP PO SCH ×2 (09:54→21:08)
[2019-06-24] MEDS: PRAMIPEXOLE 1 MG TAB PO SCH (09:58)
[2019-06-24 14:00] VITALS: BP 140/68
--- NOTE | 2019-06-24 15:59 | IPNPDOC ---
Text Note Date of Service The patient was seen on 06/24/19. NOTE Subjective: -Leg remains painful but is otherwise afebrile -He otherwise denies any chest pain, SOB, N/V/D. PE: Vitals: see below General: NAD, A&Ox3, resting comfortably HEENT: NCAT, EOMI, anicteric sclera, MMM CV: distant sounding, RRR, no murmurs or clicks or rub. Trace edema LLE, 2+ RLE RESP: CTAB, no w/r/r/ ABD: soft, NT, ND. Benign EXTREMITIES: 2+ radial pulses b/l & LLE, barely palpable RLE, able to move all extremities NEURO: no focal deficits. Follows commands. Slightly mumbled speech at baseline SKIN: right LE erythema continues to improve from prior days, less erythematous and less tender. Chronic venous stasis changes. B/l shins in clean dry bandages. Labs: WBC 10.3 Imaging: Pending LE venous doppler US A/P: 83 yo M is a direct tx from [facility] for worsening of his RLE cellulitis and concern of nec fasc. Blood & wound cultures there reportedly grew pansenstive E.Coli and was de-escalated from Zosyn to Ceftriaxone, but by Day 5 he had worsening erythema up his entire right leg with weeping bullae and blackening blair wound/eschar and transferred to [facility] where there has been no evidence of nec fasc but severe cellulitis. 1. Right lower extremity cellulitis in setting of PVD: RLE cellulitis was likely 2/2 open wounds that became infected and venous insufficiency -Previously grew pansenstive E.Coli, but concern for additional organisms given worsening wounds & failed Ceftriaxone at [facility]. Now wound cultures also showing pansensitive E.coli but given the rapid worsening on ceftriaxone, will dc vanc since he is MRSA negative and continue the piptazo. -CTA of RLE: "Soft tissue swelling of the right lower extremity visualized. Skin thickening is visualized. These findings are suggestive of cellulitis. No foci of gas" - Dr. Man consulted, appreciate input: no need for OR, no nec fasc. Wounds s/p irrigation, wound care -blood & wound cultures negative thus far -Has had much improvement on current abx. Will dc vanc and continue piptazo & monitor borders & inflamm markers, CRP pending -continue wound care as per Vasc recs -elevate both LE above level of heart 2. Mural thrombus in left common femoral artery - noted on CTA. < 50% occlusion - 2+ pulses LLE, well-perfused - continue on DVT ppx - scheduled for b/l LE Doppler 06/24 per Vasc sx 3. PVD - extensive atherosclerosis noted on imaging - difficult to palpate pulse RLE. Identified with doppler usage - Per Vasc Sx: distal flow intact. Elevate legs, Unna boot, no vasc intervention needed currently - Vasc Sx recs: venous insufficiency study when cellulitis improves HTN controlled, continue home Quinapril & HCTZ with hold parameters GERD continue home ppi AWA use CPAP Restless Legs continue Pramipexole Gout stable, continue allopurinol Hemochromotosis o/p f/u PIERCE stable. No transaminitis. Monitor with o/p f/u Hx of Metastatic Carcinoid o/p f/u DVT ppx: heparin sc DISPO: pending clinical improvement VSMatthias I+O VSMatthias I+O Laboratory Tests 06/24/19 05:49 Vital Signs Date Time Temp Pulse Resp B/P (MAP) Pulse Ox O2 Delivery O2 Flow Rate FiO2 06/24/19 06:00 97.0 53 20 143/70 (94) 100 06/23/19 17:48 Room Air I&O- Last 24 Hours up to 6 AM 06/24/19 05:59 Intake Total 1760 ml Output Total 2350 ml Balance -590 ml SELENE JOHNSON MD Jun 24, 2019 08:50
[2019-06-24] MEDS: rOPINIRole 2MG TAB PO SCH (21:08)
[2019-06-24] MEDS: **NOTE PATIENT COMMENT** MISC XX SCH (21:10)
[2019-06-24 22:00] VITALS: BP 119/70
[2019-06-25] MEDS: HEPARIN SOD (PORCINE) 5000UNITS/ML VIAL (J1644 PER 1000UNITS) SC SCH ×3 (05:45→21:31)
[2019-06-25] MEDS: PIPERACILLIN/TAZOBACTAM SOD 3.375 GM in D5W MINI-BAG PLUS 50 ML IV SCH ×3 (05:46→17:37)
[2019-06-25 06:00] VITALS: BP 158/76
[2019-06-25 06:13] LABS: HEMATOCRIT 41.8 % (42.0-52.0); HEMOGLOBIN 14.5 g/dl (13.5-17.5); MEAN CORPUSCULAR HEMOGLOBIN 34.3 pg (27.0-33.0); MEAN CORPUSCULAR HGB CONC 34.7 g/dl (32.0-36.5); MEAN CORPUSCULAR VOLUME 98.8 fl (80.0-96.0); PLATELET COUNT, AUTOMATED 316 10^3/uL (150-450); RED BLOOD COUNT 4.23 10^6/uL (4.30-6.10); WHITE BLOOD COUNT 10.6 10^3/uL (4.0-10.0)
[2019-06-25 06:28] LABS: BLOOD UREA NITROGEN 17 MG/DL (7-18); CALCIUM LEVEL 8.7 MG/DL (8.8-10.2); CARBON DIOXIDE LEVEL 24 MEQ/L (21-32); CHLORIDE LEVEL 104 MEQ/L (98-107); CREATININE FOR GFR 1.19 MG/DL (0.70-1.30); GLOMERULAR FILTRATION RATE > 60.0 (>35); GLUCOSE, FASTING 100 MG/DL (70-100); POTASSIUM SERUM 4.1 MEQ/L (3.5-5.1); SODIUM LEVEL 136 MEQ/L (136-145)
[2019-06-25] MEDS: DOCUSATE SODIUM 100 MG CAP PO SCH ×2 (09:00→21:30)
[2019-06-25] MEDS: PRAMIPEXOLE 1 MG TAB PO SCH (10:05)
[2019-06-25] MEDS: LIDOCAINE 5% (LIDODERM) PATCH TD SCH (10:05)
[2019-06-25] MEDS: hydroCHLOROthiazide 25 MG TAB PO SCH (10:06)
[2019-06-25] MEDS: allopurinoL 100 MG TAB PO SCH (10:06)
[2019-06-25] MEDS: PANTOPRAZOLE 40MG TAB (PROTONIX) PO SCH (10:07)
[2019-06-25] MEDS: NORCO, ANEXSIA 5/325MG TABLET (HYDROcodone/ACETAMINOPHEN) PO PRN ×3 (10:12→21:43)
--- NOTE | 2019-06-25 10:48 | REP ---
BILATERAL LOWER EXTREMITY DUPLEX DOPPLER VENOUS ULTRASOUND WITH EVALUATION FOR VENOUS REFLUX: Real-time compression and duplex Doppler interrogation of bilateral lower extremity deep venous systems is performed. Bilaterally, common femoral, superficial femoral and popliteal veins are fully compressible with transducer pressure and demonstrate normal spontaneous and phasic flow without evidence of deep venous thrombosis. There is a lymph node in the right inguinal region with an extensive large fatty hilum. It measures 4.9 x 0.8 x 4.2 cm. Evaluation for venous reflux demonstrates mild reflux in both common femoral veins. There is no reflux in any portion of either superficial femoral or popliteal vein. There is no reflux in either greater saphenous vein or lesser saphenous vein. Exam was done with the bed tilted, the patient was unable to stand. There is no evidence of an anterior accessory greater saphenous vein bilaterally. The right greater saphenous vein measures 3 mm throughout the course, the right lesser saphenous vein measures 2 mm. Left greater saphenous vein measures 4 mm proximally and 3 mm distally, the left lesser saphenous vein measures 2 mm. Electronically Signed by Mars Rhodes MD 06/25/2019 10:55 A
--- NOTE | 2019-06-25 11:12 | IPNPDOC ---
Text Note Date of Service The patient was seen on 06/25/19. NOTE Subjective: -Leg remains painful but a bit better, with the main issue right now being spasms from being still while leg is raised. -Otherwise afebrile -He otherwise denies any chest pain, SOB, N/V/D. PE: Vitals: see below General: NAD, A&Ox3, resting comfortably HEENT: NCAT, EOMI, anicteric sclera, MMM CV: distant sounding, RRR, no murmurs or clicks or rub. Trace edema LLE, 2+ RLE RESP: CTAB, no w/r/r/ ABD: soft, NT, ND. Benign EXTREMITIES: 2+ radial pulses b/l & LLE, able to move all extremities limited by pain in RLE. LE edema bilaterally but interval marked improvement in RLE edema that was much worse than the left. NEURO: no focal deficits. Follows commands. Slightly mumbled speech at baseline SKIN: right LE erythema continues to improve from prior days, markedly improved now, less erythematous and less tender. Chronic venous stasis changes. B/l shins in clean dry bandages. Labs: WBC 10.6 Imaging: Offical read pending for LE venous doppler US, study was completed today. A/P: 83 yo M is a direct tx from [facility] for worsening of his RLE celluliti s and concern of nec fasc. Blood & wound cultures there reportedly grew pansenstive E.Coli and was de-escalated from Zosyn to Ceftriaxone, but by Day 5 he had worsening erythema up his entire right leg with weeping bullae and blackening blair wound/eschar and transferred to [facility] where there has been no evidence of nec fasc but severe cellulitis. 1. Right lower extremity cellulitis in setting of PVD: RLE cellulitis was likely 2/2 open wounds that became infected and venous insufficiency -Previously grew pansenstive E.Coli, but concern for additional organisms given worsening wounds & failed Ceftriaxone at [facility]. Now wound cultures also showing pansensitive E.coli but given the rapid worsening on ceftriaxone, I dc'd vanc since he is MRSA negative and continued the piptazo because de-escalation is what precipitated with rapid worsening. This is day #4 of piptazo. -CTA of RLE: "Soft tissue swelling of the right lower extremity visualized. Skin thickening is visualized. These findings are suggestive of cellulitis. No foci of gas" - Dr. Man consulted, appreciate input: no need for OR, no nec fasc. Wounds s/p irrigation, wound care -blood cultures negative. Wound culture growing pansensitive Ecoli -Has had much improvement on pip/tazo, will monitor borders & inflamm markers, CRP downtrending -continue wound care as per Vasc recs with wetting the area before gentle dr essing removal to avoid injury at change -elevate both LE above level of heart -added on flexeril for muscle spasms BID PRN for legs elevated in place 2. Mural thrombus in left common femoral artery - noted on CTA. < 50% occlusion - 2+ pulses LLE, well-perfused - continue on DVT ppx - s/p b/l LE Doppler today per Vasc sx, pending official read 3. PVD - atherosclerosis noted on imaging - difficult to palpate pulse RLE. Identified with doppler usage - Per Vas Sx: distal flow intact. Elevate legs, Unna boot, no vasc intervention needed currently - Vasc Sx recs: venous insufficiency studies HTN controlled, continue home Quinapril & HCTZ with hold parameters GERD continue home ppi AWA use CPAP Restless Legs continue Pramipexole Gout stable, continue allopurinol Hemochromotosis o/p f/u PIERCE stable. No transaminitis. Monitor with o/p f/u Hx of Metastatic Carcinoid o/p f/u DVT ppx: heparin sc DISPO: pending clinical improvement, PT/OT VS,Fishbone, I+O VS, Fishbone, I+O Laboratory Tests 06/25/19 05:37 Vital Signs Date Time Temp Pulse Resp B/P (MAP) Pulse Ox O2 Delivery O2 Flow Rate FiO2 06/25/19 10:42 16 06/25/19 10:12 Room Air 06/25/19 06:00 96.6 76 158/76 (103) 94 I&O- Last 24 Hours up to 6 AM 06/25/19 06:00 Intake Total 1030 ml Output Total 2890 ml Balance -1860 ml SELENE JOHNSON MD Jun 25, 2019 11:12
[2019-06-25] MEDS: CYCLOBENZAPRINE 5MG TABLET PO PRN (12:41)
[2019-06-25 14:00] VITALS: BP 114/58
[2019-06-25] MEDS: rOPINIRole 2MG TAB PO SCH (21:31)
[2019-06-25] MEDS: **NOTE PATIENT COMMENT** MISC XX SCH (21:31)
[2019-06-25 22:00] VITALS: BP_SYST 123; BP_SYST 146; BP_DIAS 63; BP_DIAS 69
[2019-06-26] MEDS: PIPERACILLIN/TAZOBACTAM SOD 3.375 GM in D5W MINI-BAG PLUS 50 ML IV SCH ×4 (00:13→18:24)
[2019-06-26] MEDS: CYCLOBENZAPRINE 5MG TABLET PO PRN (00:44)
[2019-06-26 06:00] VITALS: BP 139/66
[2019-06-26 06:43] LABS: HEMATOCRIT 42.6 % (42.0-52.0); HEMOGLOBIN 14.5 g/dl (13.5-17.5); MEAN CORPUSCULAR HEMOGLOBIN 33.6 pg (27.0-33.0); MEAN CORPUSCULAR VOLUME 98.8 fl (80.0-96.0); PLATELET COUNT, AUTOMATED 340 10^3/uL (150-450); RED BLOOD COUNT 4.31 10^6/uL (4.30-6.10); WHITE BLOOD COUNT 11.1 10^3/uL (4.0-10.0)
[2019-06-26] MEDS: HEPARIN SOD (PORCINE) 5000UNITS/ML VIAL (J1644 PER 1000UNITS) SC SCH ×3 (06:53→21:07)
[2019-06-26] MEDS: NORCO, ANEXSIA 5/325MG TABLET (HYDROcodone/ACETAMINOPHEN) PO PRN ×2 (06:54→21:11)
[2019-06-26 07:04] LABS: CALCIUM LEVEL 9.3 MG/DL (8.8-10.2); CREATININE FOR GFR 1.26 MG/DL (0.70-1.30); GLOMERULAR FILTRATION RATE 58.5 (>35); POTASSIUM SERUM 3.8 MEQ/L (3.5-5.1)
[2019-06-26] MEDS: DOCUSATE SODIUM 100 MG CAP PO SCH ×2 (08:37→21:07)
[2019-06-26] MEDS: PRAMIPEXOLE 1 MG TAB PO SCH (08:37)
[2019-06-26] MEDS: allopurinoL 100 MG TAB PO SCH (08:37)
[2019-06-26] MEDS: PANTOPRAZOLE 40MG TAB (PROTONIX) PO SCH (08:38)
[2019-06-26] MEDS: LIDOCAINE 5% (LIDODERM) PATCH TD SCH (08:38)
[2019-06-26] MEDS: hydroCHLOROthiazide 25 MG TAB PO SCH (08:38)
[2019-06-26 14:00] VITALS: BP 122/67
--- NOTE | 2019-06-26 14:28 | IPNPDOC ---
Subjective Date Seen The patient was seen on 06/26/19. Subjective Chief Complaint/HPI Patient seen and examined at bedside this morning. Currently states that his legs appear to be healing much better than before. Denies any recent fevers, chills, shortness of breath, chest pain, abdominal pain, nausea, vomiting. He still says that the wounds are very painful when they are changed. He also reports that the drainage however has much improved since before. Patient has been able to stand and work with PT albeit not much. Currently on day 5 of antibiotics. he has no other complaints at this time. Other systems 10 point review of systems negative except for what is stated above in the subjective Objective Physical Examination General Exam: Positive: Alert, No Acute Distress Eye Exam: Positive: PERRLA, Conjunctiva & lids normal, EOMI; Negative: Sclera icteric ENT Exam: Positive: Atraumatic, Mucous membr. moist/pink, Pharynx Normal Neck Exam: Positive: Supple; Negative: JVD, thyromegaly Chest Exam: Positive: Clear to auscultation, Normal air movement Heart Exam: Positive: Rate Normal, Regular Rhythm, Normal S1, Normal S2; Negative: Murmurs, Rubs Abdomen Exam: Positive: Normal bowel sounds, Soft, Other (obese); Negative: Tenderness, Hepatospenomegaly Extremity Exam: Positive: Edema (R>>L lower extremities), Tenderness (exquisite tenderness in RLE), Swelling (RLE with firm swelling), Other (erythema now tracking to the groin and buttocks with several bullae one of which had burst an d was weeping in addition to the black/semi eschar midshin wound and plantar subgreat toe wounds ); Negative: Normal pulses (not palpable on R, palpable on LLE) Skin Exam: Positive: Breakdown, Lesion, Other skin issue (erythema now tracking to the groin and buttocks with several bullae one of which had burst and was weeping in addition to the black/semi eschar midshin wound and plantar subgreat toe wounds ); Negative: Nl turgor and temperature (hot RLE, cool LLE) Neuro Exam: Positive: Normal Speech, Cranial Nerves 3-12 NL Psych Exam: Positive: Mental status NL, Mood NL, Oriented x 3 Assessment /Plan Assessment 83M admitted for worsening of his RLE cellulitis and concern of nec fasc. Blood & wound cultures there reportedly grew pansenstive E.Coli and was de-escalated from Zosyn to Ceftriaxone, but condition acutely worsened. Currently back on zosyn and his leg wounds have been improving slowly. Labs appear to be normalizing and patient now participating with PT/OT. He still has extreme deconditioning and debility at this time. Plan/VTE VTE Prophylaxis Ordered?: Yes Plan 1. Right lower extremity cellulitis in setting of PVD: RLE cellulitis was likely 2/2 open wounds that became infected and venous insufficiency Patient still on Zosyn at this time. Repeat cultures here have grown pansensitive Escherichia coli. Condition continues to improve although patient is still really debilitated due to his prolonged hospitalization. Imaging is consistent with cellulitis with no evidence of necrotizing fasciitis - continue wound care as per Vasc recs with wetting the area before gentle dressing removal to avoid injury at change - Continue with Zosyn (day 5) - will likely need 14 days to complete treatment - elevate both LE above level of heart when possible - added on flexeril for muscle spasms BID PRN for legs elevated in place - PT/OT as tolerated 2. Mural thrombus in left common femoral artery noted on CTA. < 50% occlusion. Pt still has palpable pulses. - c/w DVT ppx for now 3. PVD - atherosclerosis noted on imaging - Per Vasc Sx: distal flow intact. Elevate legs, Unna boot, no vasc intervention needed currently - Vasc Sx recs: venous insufficiency studies - can be done as outpt 4. HTN controlled, continue home Quinapril & HCTZ with hold parameters GERD continue home ppi AWA use CPAP at night Restless Legs continue Pramipexole Gout stable, continue allopurinol Hemochromotosis o/p f/u PIERCE stable. No transaminitis. Monitor with o/p f/u Hx of Metastatic Carcinoid o/p f/u DVT ppx: heparin sc DISPO: pending clinical improvement, PT/OT VS, I&O, 24H, Fishbone Vital Signs/I&O Vital Signs Date Time Temp Pulse Resp B/P (MAP) Pulse Ox O2 Delivery O2 Flow Rate FiO2 06/26/19 07:24 18 Room Air 06/26/19 06:00 97.2 69 139/66 (90) 95 I&O- Last 24 Hours up to 6 AM 4/21/20 06:00 Intake Total 1122 ml Output Total 1300 ml Balance -178 ml Laboratory Data 24H LABS Laboratory Tests 2 06/26/19 06:22: Nucleated Red Blood Cells % (auto) 0.0, Anion Gap 7L, Glomerular Filtration Rate 58.5, Calcium Level 9.3 CBC/BMP Laboratory Tests 06/26/19 06:22 Microbiology Microbiology 06/22/19 Gram Stain - Final, Complete 06/22/19 Wound Culture - Final, Complete Escherichia Coli Staphylococcus Sp Coag Neg 06/21/19 Blood Culture - Preliminary, Resulted No Growth after 72 hours. All specime... 06/21/19 Blood Culture - Preliminary, Resulted No Growth after 72 hours. All specime... WILFREDO BUCHANAN MD Jun 26, 2019 14:28
[2019-06-26] MEDS ORDERED: MORPHINE 2 MG/ML 1ML VIAL (J2270) IV PRN (14:45)
[2019-06-26] MEDS: rOPINIRole 2MG TAB PO SCH (21:07)
[2019-06-26] MEDS: **NOTE PATIENT COMMENT** MISC XX SCH (21:07)
[2019-06-26 22:00] VITALS: BP 140/78
[2019-06-27] MEDS: PIPERACILLIN/TAZOBACTAM SOD 3.375 GM in D5W MINI-BAG PLUS 50 ML IV SCH ×3 (01:10→12:18)
[2019-06-27] MEDS: CYCLOBENZAPRINE 5MG TABLET PO PRN (01:10)
[2019-06-27] MEDS: NORCO, ANEXSIA 5/325MG TABLET (HYDROcodone/ACETAMINOPHEN) PO PRN ×2 (02:15→06:34)
[2019-06-27 06:00] VITALS: BP 136/75
[2019-06-27] MEDS: HEPARIN SOD (PORCINE) 5000UNITS/ML VIAL (J1644 PER 1000UNITS) SC SCH ×2 (06:33→13:57)
[2019-06-27 06:47] LABS: HEMATOCRIT 42.4 % (42.0-52.0); HEMOGLOBIN 14.9 g/dl (13.5-17.5); MEAN CORPUSCULAR HEMOGLOBIN 35.2 pg (27.0-33.0); MEAN CORPUSCULAR HGB CONC 35.1 g/dl (32.0-36.5); MEAN CORPUSCULAR VOLUME 100.2 fl (80.0-96.0); PLATELET COUNT, AUTOMATED 367 10^3/uL (150-450); RED BLOOD COUNT 4.23 10^6/uL (4.30-6.10); WHITE BLOOD COUNT 12.5 10^3/uL (4.0-10.0)
[2019-06-27 07:22] LABS: CALCIUM LEVEL 9.5 MG/DL (8.8-10.2); CREATININE FOR GFR 1.3 MG/DL (0.70-1.30); GLOMERULAR FILTRATION RATE 56.4 (>35); POTASSIUM SERUM 4.1 MEQ/L (3.5-5.1)
[2019-06-27] MEDS: hydroCHLOROthiazide 25 MG TAB PO SCH (08:02)
[2019-06-27] MEDS: PANTOPRAZOLE 40MG TAB (PROTONIX) PO SCH (08:02)
[2019-06-27] MEDS: PRAMIPEXOLE 1 MG TAB PO SCH (08:02)
[2019-06-27] MEDS: allopurinoL 100 MG TAB PO SCH (08:02)
[2019-06-27] MEDS: DOCUSATE SODIUM 100 MG CAP PO SCH (08:02)
[2019-06-27] MEDS: LIDOCAINE 5% (LIDODERM) PATCH TD SCH (08:03)
--- NOTE | 2019-06-27 11:36 | DS.PDOC ---
Discharge Summary General Date of Admission Jun 21, 2019 at 16:34 Date of Discharge 06/27/2019 Discharge Summary PROCEDURES PERFORMED DURING STAY: Multiple dressing changes ADMITTING DIAGNOSES: 1. Lower extremity cellulitis. DISCHARGE DIAGNOSES: 1. Lower extremity cellulitis. COMPLICATIONS/CHIEF COMPLAINT: Progessive Cellulitis. HISTORY OF PRESENT ILLNESS: 83 yo M with a history of PVD, gout, hemochromatosis who presents as a transfer from [facility] for worsening RLE cellulitis with c/f necrotizing fasciitis +/- vascular comprise. He was admitted at [facility] for cellulitis during which he was noted to have RLE erythema to the subknee that was hot to touch. He had a CT of the extremity that showed subcutaneous edema and skin thickening but no evidence of SQ gas and no drainable fluid. He was initially placed on empiric zosyn but after blood cultures and RLE wound cultures grew pansensitive Ecoli he was de-escalated to ceftriaxone. On day 5 he was noted to have markedly worsening of the erythema now tracking to the groin and buttocks with several bullae one of which had burst and was weeping in addition to the black/semi eschar midshin wound and plantar subgreat toe wounds that were present at presentation. He was otherwise afebrile and WBC remained mildly elevated to 10.6 with a CRP of [address] Zapata at [facility] requested his transfer with concern for ne crotizing fasciitis and for evaluation by surgical services. On arrival, his leg was exquisitely painful. The wounds were as described above and firm erythematous skin and non-palpable RLE DP pulse, while it had 3+ edema to to the thighs.. HOSPITAL COURSE: Patient was admitted to the medical floor for further evaluation and management. She was started on IV Zosyn and immediately there were improved results in his lower extremity cellulitis. Cultures were taken upon admission which grew Escherichia coli that was pansensitive. However, given patient's decompensation once antibiotics are de-escalated, decision was made to continue with Zosyn. Patient was evaluated by the wound care team who applied dressing changes every 48 hours. Patient legs have drastically improved since admission and he is now currently medically stable for discharge. He has been working diligently with physical therapy and has been able to participate. He hasn't accepted to acute rehabilitation at this time for further strengthening. Patient will need to continue with IV Zosyn 3.375 g every 8 hours for an additio nal 8 days. DISCHARGE MEDICATIONS: Please see below. ALLERGIES: Please see below. General Exam: Positive: Alert, No Acute Distress Eye Exam: Positive: PERRLA, Conjunctiva & lids normal, EOMI; Negative: Sclera icteric ENT Exam: Positive: Atraumatic, Mucous membr. moist/pink, Pharynx Normal Neck Exam: Positive: Supple; Negative: JVD, thyromegaly Chest Exam: Positive: Clear to auscultation, Normal air movement Heart Exam: Positive: Rate Normal, Regular Rhythm, Normal S1, Normal S2; Negative: Murmurs, Rubs Abdomen Exam: Positive: Normal bowel sounds, Soft, Other (obese); Negative: Tenderness, Hepatospenomegaly Extremity Exam: Positive: Edema (R>>L lower extremities), Tenderness (exquisite tenderness in RLE), Swelling (RLE with firm swelling), Other (erythema now tracking to the groin and buttocks with several bullae one of which had burst and was weeping in addition to the black/semi eschar midshin wound and plantar subgreat toe wounds ); Negative: Normal pulses (not palpable on R, palpable on LLE) Skin Exam: Positive: Breakdown, Lesion, Other skin issue (erythema now tracking to the groin and buttocks with several bullae one of which had burst and was weeping in addition to the black/semi eschar midshin wound and plantar subgreat toe wounds ); Negative: Nl turgor and temperature (hot RLE, cool LLE) Neuro Exam: Positive: Normal Speech, Cranial Nerves 3-12 NL Psych Exam: Positive: Mental status NL, Mood NL, Oriented x 3 LABORATORY DATA: Please see below. IMAGING: BILATERAL LOWER EXTREMITY DUPLEX DOPPLER VENOUS ULTRASOUND WITH EVALUATION FOR VENOUS REFLUX: Real-time compression and duplex Doppler interrogation of bilateral lower extremity deep venous systems is performed. Bilaterally, common femoral, superficial femoral and popliteal veins are fully compressible with transducer pressure and demonstrate normal spontaneous and phasic flow without evidence of deep venous thrombosis. There is a lymph node in the right inguinal region with an extensive large fatty hilum. It measures 4.9 x 0.8 x 4.2 cm. Evaluation for venous reflux demonstrates mild reflux in both common femoral veins. There is no reflux in any portion of either superficial femoral or popliteal vein. There is no reflux in either greater saphenous vein or lesser saphenous vein. Exam was done with the bed tilted, the patient was unable to stand. There is no evidence of an anterior accessory greater saphenous vein bilaterally. The right greater saphenous vein measures 3 mm throughout the course, the right lesser saphenous vein measures 2 mm. Left greater saphenous vein measures 4 mm proximally and 3 mm distally, the left lesser saphenous vein measures 2 mm. PROGNOSIS: Guarded ACTIVITY: As tolerated. DIET: Regular diet DISCHARGE PLAN: Acute rehabilitation DISPOSITION: . DISCHARGE INSTRUCTIONS: 1. Patient will be discharged to acute rehabilitation unit for further rehabilitation and strengthening. 2. Patient will need to continue IV Zosyn 3.375 g every 8 hours for an additional 8 days. This will complete 14 days of treatment 3. Patient will need dressing changes by the wound care team every 48-72 hours depending on the wounds. Patient will need to receive a Percocet prior to dressi ng change so that it is tolerable. ITEMS TO FOLLOWUP ON ON OUTPATIENT: 1. Lower extremity cellulitis DISCHARGE CONDITION: Medically stable for discharge. TIME SPENT ON DISCHARGE: Greater than minutes. Vital Signs/I&Os Vital Signs Date Time Temp Pulse Resp B/P (MAP) Pulse Ox O2 Delivery O2 Flow Rate FiO2 06/27/19 07:04 18 Room Air 06/27/19 06:00 97.4 70 136/75 (95) 96 I&O- Last 24 Hours up to 6 AM 06/27/19 06:00 Intake Total 1840 ml Output Total 2175 ml Balance -335 ml Laboratory Data Labs 24H Laboratory Tests 2 06/27/19 06:31: Nucleated Red Blood Cells % (auto) 0.0, Anion Gap 6L, Glomerular Filtration Rate 56.4, Calcium Level 9.5 CBC/BMP Laboratory Tests 06/27/19 06:31 Microbiology Microbiology 06/22/19 Gram Stain - Final, Complete 06/22/19 Wound Culture - Final, Complete Escherichia Coli Staphylococcus Sp Coag Neg 06/21/19 Blood Culture - Final, Complete NO GROWTH AFTER 5 DAYS 06/21/19 Blood Culture - Final, Complete NO GROWTH AFTER 5 DAYS Discharge Medications Scheduled Allopurinol (Allopurinol) 100 Mg Tablet, 100 MG PO DAILY, (Reported) Hydrochlorothiazide (Hydrochlorothiazide) 25 Mg Tablet, 25 MG PO DAILY, (Reported) Lidocaine (Lidoderm) 5% Adh..patch, 1 PATCH TD DAILY, (Reported) Remove patch after 12 hours LOWER BACK Pramipexole Di-HCl (Mirapex) 1 Mg Tablet, 1 MG PO DAILY, (Reported) WAS TAKING 0.5MG AT HOME Quinapril HCl (Quinapril HCl) 40 Mg Tablet, 40 MG PO DAILY, (Reported) Scheduled PRN Acetaminophen (Acetaminophen) 325 Mg Tablet, 650 MG PO Q4H PRN for PAIN, (Report ed) Hydrocodone/Acetaminophen (Hydrocodone-Acetamin 5-325 mg) 1 Each Tablet, 1 TAB PO Q4H PRN for PAIN, (Reported) MDD 4 Omeprazole (Omeprazole) 10 Mg Capsule.dr, 10 MG PO DAILY PRN for GI UPSET, (Reported) Tramadol HCl (Tramadol HCl) 50 Mg Tablet, 50 MG PO Q6H PRN for PAIN, (Reported) Allergies Coded Allergies: tramadol (Unverified Allergy, Unknown, 06/21/19) WILFREDO BUCHANAN MD Jun 27, 2019 11:36
[2019-06-27 14:00] VITALS: BP 136/71
== END 2019-06-27 15:30 | DRG 603 ==
LOC: M MSPAV 16:34
PROVIDERS: ADMIT Internal Medicine; ATTEND Internal Medicine
DX: L03.115 Cellulitis of right lower limb (principal); I74.3 Embolism and thrombosis of arteries of the lower extremities; G47.33 Obstructive sleep apnea (adult) (pediatric); M10.9 Gout, unspecified; I70.201 Unspecified atherosclerosis of native arteries of extremities, right leg; I10 Essential (primary) hypertension; K75.81 Nonalcoholic steatohepatitis (NASH); K21.9 Gastro-esophageal reflux disease without esophagitis; G25.81 Restless legs syndrome; Z66 Do not resuscitate; E83.119 Hemochromatosis, unspecified; B96.20 Unspecified Escherichia coli [E. coli] as the cause of diseases classified elsewhere; Z88.5 Allergy status to narcotic agent; Z79.899 Other long term (current) drug therapy

== ENCOUNTER 2019-06-27 15:14 | Inpatient (IN) | payer MEDICARE, BC, OTHER ==
[~2019-06-27] VITALS: Ht 170.2 cm; Wt 84.6 kg
[~2019-06-27 15:14] MED LIST: ALLO100T PO; APAP325T4 PO; CEFTINJ IV; CELE1CAP7 PO; CLIN1INJ IV; HYDR-3713 PO; HYDR25TAB PO; LIDO5DIS41 TD; MIRA0.5T PO; MIRA1TAB3 PO; OMEP10CA78 PO; PANT40TA3 PO; QUIN40TA26 PO; TRAM50TA2 PO
[2019-06-27] MEDS ORDERED: BISACODYL 10 MG SUPP PR PRN (15:30)
[2019-06-27 15:35] VITALS: BP 150/72
[2019-06-27] MEDS: LACTOBACILLUS ACIDOPHILUS CAP (BACID) PO SCH (17:22)
[2019-06-27] MEDS: ACETAMINOPHEN 500 MG TAB PO SCH ×2 (17:22→20:53)
[2019-06-27] MEDS: REMEDY PHYTOPLEX Z-GUARD PASTE 113GM TUBE (FROM STOREROOM PRODUCT) TOP SCH ×2 (17:23→20:58)
[2019-06-27] MEDS: PIPERACILLIN/TAZOBACTAM SOD 3.375 GM in D5W MINI-BAG PLUS 50 ML IV SCH ×2 (17:23→23:19)
[2019-06-27 20:00] VITALS: BP 141/72
[2019-06-27] MEDS: rOPINIRole 2MG TAB PO SCH (20:53)
[2019-06-27] MEDS: DOCUSATE SODIUM 100 MG CAP PO SCH (20:53)
[2019-06-27] MEDS: HEPARIN SOD (PORCINE) 5000UNITS/ML VIAL (J1644 PER 1000UNITS) SC SCH (20:54)
[2019-06-27] MEDS: SENNA 8.6 MG TAB (SENOKOT) PO SCH (20:54)
[2019-06-28] MEDS: CYCLOBENZAPRINE 5MG TABLET PO PRN ×2 (03:49→21:39)
[2019-06-28 06:00] VITALS: BP 143/67
[2019-06-28] MEDS: PIPERACILLIN/TAZOBACTAM SOD 3.375 GM in D5W MINI-BAG PLUS 50 ML IV SCH ×3 (06:20→17:25)
[2019-06-28] MEDS: HEPARIN SOD (PORCINE) 5000UNITS/ML VIAL (J1644 PER 1000UNITS) SC SCH ×3 (06:21→21:40)
[2019-06-28] MEDS: oxyCODONE 5MG TAB PO PRN (06:29)
[2019-06-28] MEDS: ASCORBIC ACID 500 MG TAB PO SCH (07:51)
[2019-06-28] MEDS: LACTOBACILLUS ACIDOPHILUS CAP (BACID) PO SCH ×2 (07:51→17:25)
[2019-06-28] MEDS: ZINC SULFATE 220 MG CAP PO SCH (07:51)
[2019-06-28] MEDS: DOCUSATE SODIUM 100 MG CAP PO SCH ×2 (07:52→21:00)
[2019-06-28] MEDS: PRAMIPEXOLE 1 MG TAB PO SCH (07:52)
[2019-06-28] MEDS: PANTOPRAZOLE 40MG TAB (PROTONIX) PO SCH (07:52)
[2019-06-28] MEDS: hydroCHLOROthiazide 25 MG TAB PO SCH (07:52)
[2019-06-28] MEDS: allopurinoL 100 MG TAB PO SCH (07:52)
[2019-06-28] MEDS: ACETAMINOPHEN 500 MG TAB PO SCH ×3 (07:53→21:00)
[2019-06-28] MEDS: REMEDY PHYTOPLEX Z-GUARD PASTE 113GM TUBE (FROM STOREROOM PRODUCT) TOP SCH ×3 (07:54→21:40)
[2019-06-28 08:11] LABS: BASO # 0.1 10^3/uL (0.0-0.2); BASO % 0.5 % (0.0-1.0); EOS # 0.2 10^3/uL (0.0-0.5); EOS % 1.5 % (0.0-3.0); HEMATOCRIT 44.4 % (42.0-52.0); HEMOGLOBIN 15.2 g/dl (13.5-17.5); LYMPH # 1.2 10^3/uL (1.5-5.0); LYMPH % 10.5 % (24.0-44.0); MEAN CORPUSCULAR HEMOGLOBIN 34.4 pg (27.0-33.0); MEAN CORPUSCULAR HGB CONC 34.2 g/dl (32.0-36.5); MEAN CORPUSCULAR VOLUME 100.5 fl (80.0-96.0); MONO # 0.6 10^3/uL (0.0-0.8); MONO % 5.7 % (0.0-5.0); NEUTROPHILS % 79.8 % (36.0-66.0); PLATELET COUNT, AUTOMATED 374 10^3/uL (150-450); RED BLOOD COUNT 4.42 10^6/uL (4.30-6.10); WHITE BLOOD COUNT 11.3 10^3/uL (4.0-10.0)
[2019-06-28 08:33] LABS: ALBUMIN 2.2 GM/DL (3.2-5.2); BILIRUBIN,TOTAL 0.7 MG/DL (0.2-1.0); CREATININE FOR GFR 1.38 MG/DL (0.70-1.30); GLOMERULAR FILTRATION RATE 52.6 (>35); POTASSIUM SERUM 4.1 MEQ/L (3.5-5.1); TOTAL PROTEIN 6.4 GM/DL (6.4-8.2)
[2019-06-28] MEDS: CARBAMIDE PEROXIDE 6.5% OTIC SOLN 15ML AU SCH ×2 (09:00→21:39)
--- NOTE | 2019-06-28 12:20 | HPEPDOC ---
Machine Tool Builder Note DATE OF ADMISSION: 06-27-19 DATE OF SERVICE: 06-28-19 TIME OF ADMISSION: Please refer to physician's admission order. SOURCE OF ADMISSION INFORMATION: [facility] record and patient CHIEF COMPLAINT: RLE Cellulitis HISTORY OF PRESENT ILLNESS: 83M pmh PVD, peripheral neuropathy, gout, hemochromatosis, metastatic carcinoid, admitted to [facility] on 06-21-19 with right LE cellulitis with concern for necrotizing fasciitis. He was continued on empiric IV antibiotics. CTA showed, Soft tissue swelling of the right lower extremity visualized. Skin thickening is visualized. These findings are suggestive of cellulitis. No foci of gas are identified within the soft tissues of the right lower extremity Additional swelling is identified lateral to the right hip. Vascular surgery was consulted who recommended local wound care and recommended venous insufficiency studies. His leukocytosis and inflammatory markers trended down with overall improvement in his right leg swelling. He was evaluated by therapy, found to have impairments in mobility and ADLs and deemed medically appropriate for discharge to ARU on 06-27-19. REVIEW OF SYSTEMS: The following is a completed review of systems and has been reviewed. Review of systems otherwise unremarkable. PAIN: Patient self reports right knee pain EYES: No recent vision changes EARS, NOSE, & THROAT: No throat pain, or dysphagia, or rhinorrhea CARDIOVASCULAR: Denies chest pain or palpitations PULMONARY: Denies shortness of breath GASTROINTESTINAL: Denies constipation/diarrhea GENITOURINARY: denies dysuria MUSCULOSKELETAL: generalized weakness NEUROLOGICAL:+paresthesias LE HEMATOLOGICAL: denies easy bruising SKIN: RLE cellulitis, left plantar eschar, left posterior calf wound PSYCHIATRIC: Unremarkable All other review of systems found to be negative. PAST MEDICAL HISTORY: as per HPI ALLERGIES: Please see below. MEDICATIONS: Please see below. SOCIAL HISTORY: ex-smoker no etoh/illicit drugs DIET: low sodium PHYSICAL EXAMINATION: VITAL SIGNS: Please see below. GENERAL: Pleasant and cooperative. No acute distress. HEENT: PERRL. Extraocular movements intact. Clear conjunctiva CARDIOVASCULAR: Regular rate and rhythm. No murmurs, rubs, or gallops LUNGS: Clear to auscultation bilaterally. No wheezes. No rhonchi ABDOMEN: Soft, nontender, nondistended. Positive bowel sounds. Normal active bowel sounds NEUROLOGICAL: Alert and oriented times three. Cranial nerves II through XII grossly intact. Sensation diminished ti light touch bilat toes in stocking pattern EXTREMITIES: 5-\5 strength bilateral upper extremities. 4\5 strength right lower extremity (limited to due to pain) 5-/5 strength in left lower extremity. SKIN: Right calf not examined (Tubigrip in place), right plantar eschar, right medial thigh/groin without lesions, left calf with hyperpigmented skin, left posterior calf with wound with scant serosanguineous drainage -sacrum without erythema LABORATORY DATA: Please see below. IMAGING:Imaging documentation personally reviewed by record FUNCTIONAL STATUS: Premorbid: Independent with all activities of daily life as well as mobility On Admission: Min-Mod assist for functional transfers, Contact guard ambulating 20 feet, Max assist for lower body dressing, min assist for bathing. GOALS:Mod-I for ambulation community distances, stairs, functional transfers, bathing, toileting, dressing, medical optimization. ASSESSMENT:83-year-old M with past medical history of PVD, gout who presents status post RLE cellulitis PLAN: 1. Rehab- PT/OT advance gait and ADLs, strengthen/stretch/maintain ROM all 4 limbs, fall recovery, dynamic balance training 2. 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 Cardiac: HTN c/u hydrochlorothiazide and manage BPs accordingly 4. Vasc/ID: patient with PVD with RLE cellulitis, c/u dressing changes, monitor leukocytosis and trend CRP, c/u Zosyn for a 14 day total course of antibiotics -Right plantar eschar-c/u wound care -left posterior calf wound- c/u wound care per recs -Mural thrombus in left common femoral artery, f/u with vascular on outpatient 5. Resp: hx of AWA, patient reports he stopped using CPAP at home, will order nocturnal 02 6. Rheum: hx of gout c/u allopurinol 7. Renal: patient with CKD3, will monitor and consider renal consult if Public Health Nurse worsens 8. Pain: c/u Tylenol and oxycodone, IV morphine for pre-wound dressing change 9. DVT ppx: heparin 10. GI ppx: protonix 11. Dispo: TBD POST ADMISSION PHYSICIAN EVALUATION: Medical and functional status: Description of medical status, medical ass essment: As above. Rehabilitation diagnosis and current and prior cold morbid medical conditions as above. Risk of complications and plans to mitigate them as above. Description of functional status current status is as above. Prior status as above. Status compared to preadmission: There are no clinically significant differences between the patient's current status and the information described on the preadmission screening document. Treatment plan anticipated: Treatment plan is as described above. Required disciplines including physical therapy, occupational therapy, others as noted above. Intensity of services: 3 hours a day, 6 days a week. Special considerations: There are no specific special or safety considerations that would likely preclude immediate implementation of an intensive r ehabilitation program or subsequently influence the plan of care. ATTESTATION: Considering all the information above, it is my best judgment that this patient requires intensive rehabilitation therapy as described above and an inpatient hospital environment due to the complexity of nursing, medical, and rehabilitation needs required by the patient. Furthermore, this patient can reasonably be expected to participate in an benefit from an inpatient rehabilitation stay with an interdisciplinary team approach to the delivery of rehabilitation care under the direction and supervision of rehabilitation physician. PROGNOSIS: good ESTIMATED LENGTH OF STAY: 10-14 days. PROJECTED DISCHARGE DESTINATION: Home with family support and any durable medical equipment required to increase functional safety and mobility. TIME SPENT COUNSELING AND COORDINATING INITIAL CARE: Greater than 70 minutes. Vital Signs Vital Sign - Last 24 Hours 06/27/19 06/27/19 06/28/19 06/28/19 15:35 20:00 06:00 06:29 Temp 97.0 97.1 96.5 Pulse 95 76 66 Resp 18 17 17 18 B/P (MAP) 150/72 (98) 141/72 (95) 143/67 (92) Pulse Ox 96 96 98 O2 Delivery Room Air Room Air Room Air 06/28/19 07:20 Resp 18 Laboratory Data CBC/BMP Laboratory Tests 06/28/19 07:53 Labs 24H Laboratory Tests 2 06/28/19 07:53: Immature Granulocyte % (Auto) 2.0, Neutrophils (%) (Auto) 79.8H, Lymphocytes (%) (Auto) 10.5L, Monocytes (%) (Auto) 5.7H, Eosinophils (%) (Auto) 1.5, Basophils (%) (Auto) 0.5, Neutrophils # (Auto) 9.0H, Lymphocytes # (Auto) 1.2L, Monocytes # (Auto) 0.6, Eosinophils # (Auto) 0.2, Basophils # (Auto) 0.1, Nucleated Red Blood Cells % (auto) 0.0, Anion Gap 8, Glomerular Filtration Rate 52.6, Calcium Level 9.0, Total Bilirubin 0.7, Aspartate Amino Transf (AST/SGOT) 45H, Alanine Aminotransferase (ALT/SGPT) 67, Alkaline Phosphatase 106, Total Protein 6.4, Albumin 2.2L, Albumin/Globulin Ratio 0.52L Home Medications Scheduled Allopurinol (Allopurinol) 100 Mg Tablet, 100 MG PO DAILY, (Reported) Hydrochlorothiazide (Hydrochlorothiazide) 25 Mg Tablet, 25 MG PO DAILY, (Reported) Lidocaine (Lidoderm) 5% Adh..patch, 1 PATCH TD DAILY, (Reported) Remove patch after 12 hours LOWER BACK Pramipexole Di-HCl (Mirapex) 1 Mg Tablet, 1 MG PO DAILY, (Reported) WAS TAKING 0.5MG AT HOME Quinapril HCl (Quinapril HCl) 40 Mg Tablet, 40 MG PO DAILY, (Reported) Scheduled PRN Acetaminophen (Acetaminophen) 325 Mg Tablet, 650 MG PO Q4H PRN for PAIN, (Reported) Hydrocodone/Acetaminophen (Hydrocodone-Acetamin 5-325 mg) 1 Each Tablet, 1 TAB PO Q4H PRN for PAIN, (Reported) MDD 4 Omeprazole (Omeprazole) 10 Mg Capsule.dr, 10 MG PO DAILY PRN for GI UPSET, (Reported) Tramadol HCl (Tramadol HCl) 50 Mg Tablet, 50 MG PO Q6H PRN for PAIN, (Reported) Allergies Coded Allergies: tramadol (Unverified Allergy, Unknown, 06/21/19) A-FIB/CHADSVASC A-FIB History Current/History of A-Fib/PAF?: No FERNIE GUEVARA MD Jun 28, 2019 12:20
[2019-06-28 12:39] LABS: URIC ACID 4.1 MG/DL (3.5-7.2)
[2019-06-28 14:00] VITALS: BP 157/91
--- NOTE | 2019-06-28 18:52 | IPNPDOC ---
Subjective Date Seen The patient was seen on 06/28/19. Subjective Chief Complaint/HPI Patient says his leg is much better, the swelling and redness is much improved now only a little swelling at the lower part of the leg. He denied any sob or cough. He did say that he had some difficulty in swallowing of the bigger pills specially when sitting in bed. Says he has this problem at home also but hten he stands up straightens his neck and then the pills go down easily. No coughing noted after swallowing water. Says his pain is controlled. Objective Physical Examination General Exam: Positive: Alert, Cooperative, No Acute Distress Eye Exam: Positive: PERRLA, Conjunctiva & lids normal, EOMI; Negative: Sclera icteric ENT Exam: Positive: Atraumatic, Mucous membr. moist/pink, Pharynx Normal Neck Exam: Positive: Supple; Negative: JVD, thyromegaly Chest Exam: Positive: Clear to auscultation, Normal air movement Heart Exam: Positive: Rate Normal, Regular Rhythm, Normal S1, Normal S2; Negative: Murmurs, Rubs Abdomen Exam: Positive: Normal bowel sounds, Soft; Negative: Tenderness, Hepatospenomegaly Extremity Exam: Positive: Other (right lower extremity in dressing); Negative: Clubbing, Cyanosis, Edema Skin Exam: Positive: Breakdown (left lower extremity with venous stasis ulcer just below the calf 2cm x 2cm) Neuro Exam: Positive: Normal Speech, Strength at 5/5 X4 ext, Normal Tone Psych Exam: Positive: Mental status NL, Mood NL, Oriented x 3 Assessment /Plan Assessment 83M with PMH of PVD, chronic venous insufficiency, gout, hemochromatosis, AWA, gout, hemochromatosis, HTN, PIERCE, metastatic carcinoid was initially admitted to the medical floor as a transfer from [facility] for worsening of his RLE cellulitis and concern of nec fasc +/- vascular compromise. On admission he had erythema int eh right leg tracking to the groin and buttocks with several bullae one of which had burst and was weeping in addition to the black/semi eschar midshin wound and plantar sub great toe wounds. His leg was exquisitely painful. The wounds were as described above and firm erythematous skin and non-palpable RLE DP pulse, while it had 3+ edema to to the thighs. He was treated with IV antibiotics aggressive wound care , IV diuretics with significant improvement of his leg and his wound. He started ambulating and was able to work with PT. However he still had extreme deconditioning and debility so was referred to ARU and was accepted for further rehab. Right lower extremity cellulitis in setting of PVD: RLE cellulitis was likely 2/2 open wounds that became infected and venous insufficiency Repeat cultures here have grown pansensitive Escherichia coli. Will Need total 14 days of Zosyn. End date 07/05/19 Imaging is consistent with cellulitis with no evidence of necrotizing fasciitis continue wound care as per Vasc recs with wetting the area before gentle dressing removal to avoid injury at change Elevate both LE above level of heart when possible pain control with tylenol and oxycodone and morphine during dressing change. On flexeril for muscle spasms BID PRN for legs elevated in place Generalized deconditioning and debility PT and OT as per ARU. Mural thrombus in left common femoral artery noted on CTA. < 50% occlusion. Pt still has palpable pulses. c/w DVT ppx for now PVD atherosclerosis noted on imaging Per Vasc Sx: distal flow intact. Elevate legs, Unna boot, no vasc intervention needed currently Vasc Sx recs: venous insufficiency studies - can be done as outpt Chronic venous stasis with stasis dermatitis and stasis ulcer on the leftleg below the calf continue with wound care. HTN controlled, continue home Quinapril & HCTZ with hold parameters GERD continue home ppi AWA use CPAP at night Restless Legs continue Pramipexole, ropinirole Gout stable, continue allopurinol Hemochromatosis o/p f/u PIERCE stable. No transaminitis. Monitor with o/p f/u Hx of Metastatic Carcinoid o/p f/u DVT ppx: heparin sc Plan/VTE VTE Prophylaxis Ordered?: Yes VS, I&O, 24H, Fishbone Vital Signs/I&O Vital Signs Date Time Temp Pulse Resp B/P (MAP) Pulse Ox O2 Delivery O2 Flow Rate FiO2 06/28/19 14:00 96.3 104 20 157/91 (113) 97 Room Air I&O- Last 24 Hours up to 6 AM 06/28/19 05:59 Intake Total 580 ml Output Total 1375 ml Balance -795 ml Laboratory Data 24H LABS Laboratory Tests 2 06/28/19 07:53: Immature Granulocyte % (Auto) 2.0, Neutrophils (%) (Auto) 79.8H, Lymphocytes (%) (Auto) 10.5L, Monocytes (%) (Auto) 5.7H, Eosinophils (%) (Auto) 1.5, Basophils (%) (Auto) 0.5, Neutrophils # (Auto) 9.0H, Lymphocytes # (Auto) 1.2L, Monocytes # (Auto) 0.6, Eosinophils # (Auto) 0.2, Basophils # (Auto) 0.1, Nucleated Red Blood Cells % (auto) 0.0, Anion Gap 8, Glomerular Filtration Rate 52.6, Uric Acid 4.1, Calcium Level 9.0, Total Bilirubin 0.7, Aspartate Amino Transf (AST/SGOT) 45H, Alanine Aminotransferase (ALT/SGPT) 67, Alkaline Phosphatase 106, Total Protein 6.4, Albumin 2.2L, Albumin/Globulin Ratio 0.52L CBC/BMP Laboratory Tests 06/28/19 07:53 STEVE MCKINLEY MD Jun 28, 2019 18:52
[2019-06-28 21:00] VITALS: BP 147/75
[2019-06-28] MEDS: SENNA 8.6 MG TAB (SENOKOT) PO SCH (21:00)
[2019-06-28] MEDS: rOPINIRole 2MG TAB PO SCH (21:38)
[2019-06-28] MEDS ORDERED: ZOSYN 3.375GM VIAL (J2543) As Ordered ONE (23:40)
[2019-06-29] MEDS: PIPERACILLIN/TAZOBACTAM SOD 3.375 GM in D5W MINI-BAG PLUS 50 ML IV SCH ×5 (00:06→23:21)
[2019-06-29] MEDS: oxyCODONE 5MG TAB PO PRN ×2 (00:09→08:01)
[2019-06-29] MEDS: HEPARIN SOD (PORCINE) 5000UNITS/ML VIAL (J1644 PER 1000UNITS) SC SCH ×3 (06:07→21:13)
[2019-06-29 06:16] VITALS: BP 159/73
[2019-06-29] MEDS: ZINC SULFATE 220 MG CAP PO SCH (07:59)
[2019-06-29] MEDS: LACTOBACILLUS ACIDOPHILUS CAP (BACID) PO SCH ×2 (08:00→18:00)
[2019-06-29] MEDS: DOCUSATE SODIUM 100 MG CAP PO SCH ×2 (08:00→21:11)
[2019-06-29] MEDS: ASCORBIC ACID 500 MG TAB PO SCH (08:00)
[2019-06-29] MEDS: hydroCHLOROthiazide 25 MG TAB PO SCH (08:00)
[2019-06-29] MEDS: ACETAMINOPHEN 500 MG TAB PO SCH ×3 (08:00→21:00)
[2019-06-29] MEDS: PANTOPRAZOLE 40MG TAB (PROTONIX) PO SCH (08:00)
[2019-06-29] MEDS: PRAMIPEXOLE 1 MG TAB PO SCH (08:01)
[2019-06-29] MEDS: CARBAMIDE PEROXIDE 6.5% OTIC SOLN 15ML AU SCH ×2 (08:01→21:15)
[2019-06-29] MEDS: allopurinoL 100 MG TAB PO SCH (08:01)
[2019-06-29] MEDS: REMEDY PHYTOPLEX Z-GUARD PASTE 113GM TUBE (FROM STOREROOM PRODUCT) TOP SCH ×3 (08:02→21:00)
[2019-06-29 08:20] LABS: BASO # 0.1 10^3/uL (0.0-0.2); BASO % 0.7 % (0.0-1.0); EOS # 0.2 10^3/uL (0.0-0.5); EOS % 2.4 % (0.0-3.0); HEMATOCRIT 42.8 % (42.0-52.0); HEMOGLOBIN 14.8 g/dl (13.5-17.5); LYMPH # 1.4 10^3/uL (1.5-5.0); LYMPH % 15.3 % (24.0-44.0); MEAN CORPUSCULAR HEMOGLOBIN 34.9 pg (27.0-33.0); MEAN CORPUSCULAR HGB CONC 34.6 g/dl (32.0-36.5); MEAN CORPUSCULAR VOLUME 100.9 fl (80.0-96.0); MONO # 0.9 10^3/uL (0.0-0.8); MONO % 9.3 % (0.0-5.0); NEUTROPHILS # 6.5 10^3/uL (1.5-8.5); NEUTROPHILS % 69.7 % (36.0-66.0); PLATELET COUNT, AUTOMATED 384 10^3/uL (150-450); RED BLOOD COUNT 4.24 10^6/uL (4.30-6.10); WHITE BLOOD COUNT 9.4 10^3/uL (4.0-10.0)
[2019-06-29 08:50] LABS: C REACTIVE PROTEIN QUANTITATIV 2.99 MG/DL (0.00-0.30); CALCIUM LEVEL 8.8 MG/DL (8.8-10.2); CREATININE FOR GFR 1.36 MG/DL (0.70-1.30); GLOMERULAR FILTRATION RATE 53.5 (>35); POTASSIUM SERUM 3.5 MEQ/L (3.5-5.1)
[2019-06-29] MEDS: amLODIPine 5 MG TAB PO SCH (12:40)
[2019-06-29] MEDS ORDERED: oxyCODONE 5MG TAB PO PRN (13:00)
[2019-06-29 14:00] VITALS: BP 155/67
[2019-06-29] MEDS: predniSONE 10 MG TAB PO SCH (14:34)
[2019-06-29] MEDS: MORPHINE 2 MG/ML 1ML VIAL (J2270) IV PRN (14:37)
[2019-06-29] MEDS: oxyCODONE 5MG TAB PO SCH (14:45)
--- NOTE | 2019-06-29 14:46 | IPNPDOC ---
PM&R Progress Note DATE OF SERVICE: Jun 29, 2019 [employer] Progress Note Subjective: Patient was seen for wound dressing change, reporting his right knee still feels stiff and swollen. REVIEW OF SYSTEMS: The following is a completed review of systems and has been reviewed. Review of systems otherwise unremarkable. PAIN: Patient self reports right knee pain EYES: No recent vision changes EARS, NOSE, & THROAT: No throat pain, or dysphagia, or rhinorrhea CARDIOVASCULAR: Denies chest pain or palpitations PULMONARY: Denies shortness of breath GASTROINTESTINAL: Denies constipation/diarrhea GENITOURINARY: denies dysuria MUSCULOSKELETAL: generalized weakness NEUROLOGICAL:+paresthesias LE HEMATOLOGICAL: denies easy bruising SKIN: RLE cellulitis, left plantar eschar, left posterior calf wound PSYCHIATRIC: Unremarkable All other review of systems found to be negative. PHYSICAL EXAMINATION: VITAL SIGNS: Please see below. GENERAL: Pleasant and cooperative. No acute distress. HEENT: PERRL. Extraocular movements intact. Clear conjunctiva CARDIOVASCULAR: Regular rate and rhythm. No murmurs, rubs, or gallops LUNGS: Clear to auscultation bilaterally. No wheezes. No rhonchi ABDOMEN: Soft, nontender, nondistended. Positive bowel sounds. Normal active bowel sounds NEUROLOGICAL: Alert and oriented times three. Cranial nerves II through XII grossly intact. Sensation diminished ti light touch bilat toes in stocking pattern EXTREMITIES: 5-\5 strength bilateral upper extremities. 4\5 strength right lower extremity (limited to due to pain) 5-/5 strength in left lower extremity. SKIN: Right calf not examined (Tubigrip in place), right plantar eschar, right medial thigh/groin without lesions, left calf with hyperpigmented skin, left posterior calf with wound with scant serosanguineous drainage -sacrum without erythema LABORATORY DATA: Please see below. ASSESSMENT:83-year-old M with past medical history of PVD, gout who presents status post RLE cellulitis PLAN: 1. Rehab- PT/OT advance gait and ADLs, strengthen/stretch/maintain ROM all 4 limbs, fall recovery, dynamic balance training 2. 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 Cardiac: HTN c/u hydrochlorothiazide and manage BPs accordingly 4. Vasc/ID: patient with PVD with RLE cellulitis, c/u dressing changes, monitor leukocytosis and trend CRP- 2.9 today trending down, c/u Zosyn for a 14 day total course of antibiotics -Right plantar eschar-c/u wound care -left posterior calf wound- c/u wound care per recs -Mural thrombus in left common femoral artery, f/u with vascular on outpatient 5. Resp: hx of AWA, patient reports he stopped using CPAP at home, c/u nocturnal 02 6. Rheum: hx of gout c/u allopurinol 7. Renal: patient with CKD3, will monitor and consider renal consult if Court Registry Officer worsens 8. Pain: c/u Tylenol and oxycodone, IV morphine for pre-wound dressing change -right knee swelling is slightly better today after ice, low concern for gout flare as uric acid level not elevated, knee with good ROM likely inflammatory and not infectious- will avoid topical lidoderm given proximity of cellulitis and open wounds to the knee and do 3 day course of oral prednisone to assist with pain and improve participation in therapy, will expect a transient elevated in wbcs, CRP thus far trending down 9. DVT ppx: heparin 10. GI ppx: protonix 11. Dispo: TBD Allergies Coded Allergies: tramadol (Unverified Allergy, Unknown, 06/21/19) Vital Signs Vital Signs Date Time Temp Pulse Resp B/P (MAP) Pulse Ox O2 Delivery O2 Flow Rate FiO2 06/29/19 14:40 16 06/29/19 12:40 81 144/70 06/29/19 06:16 96.9 99 Nasal Cannula 2.0 Laboratory Data CBC/BMP Laboratory Tests 06/29/19 08:03 Labs 24H Laboratory Tests 2 06/29/19 08:03: Immature Granulocyte % (Auto) 2.6, Neutrophils (%) (Auto) 69.7H, Lymphocytes (%) (Auto) 15.3L, Monocytes (%) (Auto) 9.3H, Eosinophils (%) (Auto) 2.4, Basophils (%) (Auto) 0.7, Neutrophils # (Auto) 6.5, Lymphocytes # (Auto) 1.4L, Monocytes # (Auto) 0.9H, Eosinophils # (Auto) 0.2, Basophils # (Auto) 0.1, Nucleated Red Blood Cells % (auto) 0.0, Anion Gap 6L, Glomerular Filtration Rate 53.5, Calcium Level 8.8, C-Reactive Protein, Quantitative 2.99H Current Medications Current Medications Current Medications Medications (Trade) Dose Ordered Sig/Ambrose Route PRN Reason Start Time Stop Time Status Last Admin Dose Admin Acetaminophen (Tylenol Tab) 500 mg TID PO 06/28/19 16:00 06/29/19 08:00 Acetaminophen (Tylenol Tab) 1,000 mg TID PO 06/27/19 16:00 06/28/19 12:14 DC 06/28/19 07:53 Allopurinol (Zyloprim) 100 mg DAILY PO 06/28/19 09:00 06/29/19 08:01 Amlodipine Besylate (Norvasc) 5 mg DAILY PO 06/29/19 09:00 06/29/19 12:40 Ascorbic Acid (Vitamin C) 500 mg DAILY PO 06/28/19 09:00 06/29/19 08:00 Bisacodyl (Dulcolax Suppository) 10 mg DAILYPRN PRN MO CONSTIPATION 06/27/19 15:30 Carbamide Peroxide (Debrox) 5 drop BID AU 06/28/19 09:00 07/01/19 21:01 06/29/19 08:01 Cyclobenzaprine HCl (Flexeril) 5 mg TIDP PRN PO SPASMS 06/27/19 15:30 06/28/19 21:39 Docusate Sodium (Colace) 100 mg BID PO 06/27/19 21:00 06/29/19 08:00 Heparin Sodium (Porcine) (Heparin) 5,000 units Q8H SC 06/27/19 22:00 06/29/19 12:40 Hydrochlorothiazide (Hydrodiuril) 25 mg DAILY PO 06/28/19 09:00 06/29/19 08:00 Lactobacillus Acidophilus (Bacid) 1 ea BIDWM PO 06/27/19 18:00 06/29/19 08:00 Morphine Sulfate (Morphine Sulfate Inj) 2 mg Q3D PRN IV DRESSING CHANGE 06/28/19 10:45 06/29/19 14:37 Oxycodone HCl (Roxicodone, Oxyir) 5 mg 0800,1200,1600 PO 06/29/19 14:45 Oxycodone HCl (Roxicodone, Oxyir) 5 mg 0800,1200,1600 PO 06/29/19 16:00 06/29/19 14:36 DC Oxycodone HCl (Roxicodone, Oxyir) 5 mg 0800,1200,1600 PO 06/29/19 16:00 06/29/19 14:42 DC 06/29/19 14:40 Oxycodone HCl (Roxicodone, Oxyir) 5 mg Q4HP PRN PO PAIN 06/27/19 15:30 06/29/19 12:52 DC 06/29/19 08:01 Oxycodone HCl (Roxicodone, Oxyir) 5 mg QHS PRN PO PAIN 06/29/19 13:00 Pantoprazole Sodium (Protonix) 40 mg DAILY PO 06/28/19 09:00 06/29/19 08:00 Piperacillin Sod/ Tazobactam Sod 3.375 gm/Dextrose 50 ml @ 50 mls/hr Q6H IV 06/27/19 18:00 07/05/19 17:59 06/29/19 12:40 Pramipexole Dihydrochloride (Mirapex) 1 mg DAILY PO 06/28/19 09:00 06/29/19 08:01 Prednisone (Deltasone) 10 mg DAILY PO 06/29/19 09:00 07/01/19 09:01 06/29/19 14:34 Ropinirole HCl (Requip) 4 mg QHS PO 06/27/19 21:00 06/28/19 21:38 Senna (Senokot) 1 tab QHS PO 06/27/19 21:00 Zinc Sulfate (Zinc Sulfate) 220 mg DAILY PO 06/28/19 09:00 06/29/19 07:59 FERNIE GUEVARA MD Jun 29, 2019 14:46
[2019-06-29] MEDS ORDERED: oxyCODONE 5MG TAB PO SCH ×2 (16:00)
[2019-06-29 20:00] VITALS: BP 148/69
[2019-06-29] MEDS: SENNA 8.6 MG TAB (SENOKOT) PO SCH (21:10)
[2019-06-29] MEDS: rOPINIRole 2MG TAB PO SCH (21:11)
[2019-06-30] MEDS: HEPARIN SOD (PORCINE) 5000UNITS/ML VIAL (J1644 PER 1000UNITS) SC SCH ×3 (05:39→20:35)
[2019-06-30] MEDS: PIPERACILLIN/TAZOBACTAM SOD 3.375 GM in D5W MINI-BAG PLUS 50 ML IV SCH ×4 (05:39→23:22)
[2019-06-30 06:00] VITALS: BP 133/74
[2019-06-30] MEDS: DOCUSATE SODIUM 100 MG CAP PO SCH ×2 (08:32→20:35)
[2019-06-30] MEDS: ACETAMINOPHEN 500 MG TAB PO SCH ×3 (08:33→20:36)
[2019-06-30] MEDS: predniSONE 10 MG TAB PO SCH (08:34)
[2019-06-30] MEDS: oxyCODONE 5MG TAB PO SCH ×3 (08:34→16:07)
[2019-06-30] MEDS: ZINC SULFATE 220 MG CAP PO SCH (08:34)
[2019-06-30] MEDS: PANTOPRAZOLE 40MG TAB (PROTONIX) PO SCH (08:34)
[2019-06-30] MEDS: ASCORBIC ACID 500 MG TAB PO SCH (08:34)
[2019-06-30] MEDS: allopurinoL 100 MG TAB PO SCH (08:34)
[2019-06-30] MEDS: PRAMIPEXOLE 1 MG TAB PO SCH (08:34)
[2019-06-30] MEDS: LACTOBACILLUS ACIDOPHILUS CAP (BACID) PO SCH ×2 (08:34→17:42)
[2019-06-30] MEDS: amLODIPine 5 MG TAB PO SCH (08:34)
[2019-06-30] MEDS: hydroCHLOROthiazide 25 MG TAB PO SCH (08:34)
[2019-06-30] MEDS: REMEDY PHYTOPLEX Z-GUARD PASTE 113GM TUBE (FROM STOREROOM PRODUCT) TOP SCH ×3 (08:35→20:45)
[2019-06-30] MEDS: CARBAMIDE PEROXIDE 6.5% OTIC SOLN 15ML AU SCH ×2 (08:35→20:38)
[2019-06-30 14:00] VITALS: BP 136/66
[2019-06-30] MEDS: rOPINIRole 2MG TAB PO SCH (20:35)
[2019-06-30] MEDS: SENNA 8.6 MG TAB (SENOKOT) PO SCH (20:35)
[2019-06-30 22:00] VITALS: BP 132/73
[2019-07-01] MEDS: HEPARIN SOD (PORCINE) 5000UNITS/ML VIAL (J1644 PER 1000UNITS) SC SCH ×3 (05:49→20:28)
[2019-07-01] MEDS: PIPERACILLIN/TAZOBACTAM SOD 3.375 GM in D5W MINI-BAG PLUS 50 ML IV SCH ×4 (05:49→23:12)
[2019-07-01 06:00] VITALS: BP 140/71
[2019-07-01] MEDS: ZINC SULFATE 220 MG CAP PO SCH (07:47)
[2019-07-01] MEDS: DOCUSATE SODIUM 100 MG CAP PO SCH ×2 (07:47→20:30)
[2019-07-01] MEDS: PRAMIPEXOLE 1 MG TAB PO SCH (07:47)
[2019-07-01] MEDS: ASCORBIC ACID 500 MG TAB PO SCH (07:48)
[2019-07-01] MEDS: hydroCHLOROthiazide 25 MG TAB PO SCH (07:48)
[2019-07-01] MEDS: ACETAMINOPHEN 500 MG TAB PO SCH ×3 (07:48→20:29)
[2019-07-01] MEDS: LACTOBACILLUS ACIDOPHILUS CAP (BACID) PO SCH ×2 (07:48→17:55)
[2019-07-01] MEDS: amLODIPine 5 MG TAB PO SCH (07:48)
[2019-07-01] MEDS: predniSONE 10 MG TAB PO SCH (07:49)
[2019-07-01] MEDS: PANTOPRAZOLE 40MG TAB (PROTONIX) PO SCH (07:49)
[2019-07-01] MEDS: oxyCODONE 5MG TAB PO SCH ×3 (07:49→16:20)
[2019-07-01] MEDS: allopurinoL 100 MG TAB PO SCH (07:49)
[2019-07-01] MEDS: REMEDY PHYTOPLEX Z-GUARD PASTE 113GM TUBE (FROM STOREROOM PRODUCT) TOP SCH ×3 (07:50→20:30)
[2019-07-01] MEDS: CARBAMIDE PEROXIDE 6.5% OTIC SOLN 15ML AU SCH ×2 (07:50→20:30)
[2019-07-01 14:00] VITALS: BP 126/68
[2019-07-01 20:00] VITALS: BP 134/67
[2019-07-01] MEDS: rOPINIRole 2MG TAB PO SCH (20:29)
[2019-07-01] MEDS: SENNA 8.6 MG TAB (SENOKOT) PO SCH (20:29)
[2019-07-02] MEDS: CYCLOBENZAPRINE 5MG TABLET PO PRN (00:27)
[2019-07-02] MEDS: PIPERACILLIN/TAZOBACTAM SOD 3.375 GM in D5W MINI-BAG PLUS 50 ML IV SCH ×4 (05:03→22:55)
[2019-07-02] MEDS: HEPARIN SOD (PORCINE) 5000UNITS/ML VIAL (J1644 PER 1000UNITS) SC SCH ×3 (05:03→22:55)
[2019-07-02 07:36] LABS: BASO # 0.1 10^3/uL (0.0-0.2); BASO % 0.9 % (0.0-1.0); EOS # 0.3 10^3/uL (0.0-0.5); EOS % 2.8 % (0.0-3.0); HEMATOCRIT 44.4 % (42.0-52.0); HEMOGLOBIN 15.1 g/dl (13.5-17.5); LYMPH # 2.3 10^3/uL (1.5-5.0); LYMPH % 25.3 % (24.0-44.0); MEAN CORPUSCULAR HEMOGLOBIN 34.2 pg (27.0-33.0); MEAN CORPUSCULAR VOLUME 100.5 fl (80.0-96.0); MONO # 0.8 10^3/uL (0.0-0.8); MONO % 9.1 % (0.0-5.0); NEUTROPHILS # 5.4 10^3/uL (1.5-8.5); NEUTROPHILS % 60.4 % (36.0-66.0); PLATELET COUNT, AUTOMATED 387 10^3/uL (150-450); RED BLOOD COUNT 4.42 10^6/uL (4.30-6.10); WHITE BLOOD COUNT 8.9 10^3/uL (4.0-10.0)
[2019-07-02 07:59] LABS: C REACTIVE PROTEIN QUANTITATIV 0.9 MG/DL (0.00-0.30); CALCIUM LEVEL 9.4 MG/DL (8.8-10.2); CREATININE FOR GFR 1.38 MG/DL (0.70-1.30); GLOMERULAR FILTRATION RATE 52.6 (>35); POTASSIUM SERUM 3.7 MEQ/L (3.5-5.1)
[2019-07-02] MEDS: PRAMIPEXOLE 1 MG TAB PO SCH (08:24)
[2019-07-02] MEDS: ZINC SULFATE 220 MG CAP PO SCH (08:24)
[2019-07-02] MEDS: ACETAMINOPHEN 500 MG TAB PO SCH ×3 (08:24→20:00)
[2019-07-02] MEDS: allopurinoL 100 MG TAB PO SCH (08:25)
[2019-07-02] MEDS: amLODIPine 5 MG TAB PO SCH (08:25)
[2019-07-02] MEDS: oxyCODONE 5MG TAB PO SCH ×3 (08:26→17:26)
[2019-07-02] MEDS: PANTOPRAZOLE 40MG TAB (PROTONIX) PO SCH (08:26)
[2019-07-02] MEDS: hydroCHLOROthiazide 25 MG TAB PO SCH (08:26)
[2019-07-02] MEDS: DOCUSATE SODIUM 100 MG CAP PO SCH ×2 (08:26→20:00)
[2019-07-02] MEDS: LACTOBACILLUS ACIDOPHILUS CAP (BACID) PO SCH ×2 (08:26→17:25)
[2019-07-02] MEDS: ASCORBIC ACID 500 MG TAB PO SCH (08:26)
[2019-07-02] MEDS: REMEDY PHYTOPLEX Z-GUARD PASTE 113GM TUBE (FROM STOREROOM PRODUCT) TOP SCH ×3 (08:27→20:00)
[2019-07-02 14:00] VITALS: BP 141/64
--- NOTE | 2019-07-02 14:26 | IPNPDOC ---
PM&R Progress Note DATE OF SERVICE: Jul 02, 2019 Maintenance And Operations Supervisor Progress Note Subjective: Patient was seen for wound dressing change, stating his right leg feels less swollen. He reports a headache that has been constant and was encouraged to d rink more fluids and take Tylenol. He asked to change his diet to regular so that he can have occasional sausage. He reports a decrease in his taste. REVIEW OF SYSTEMS: The following is a completed review of systems and has been reviewed. Review of systems otherwise unremarkable. PAIN: Patient self reports right knee pain EYES: No recent vision changes EARS, NOSE, & THROAT: No throat pain, or dysphagia, or rhinorrhea CARDIOVASCULAR: Denies chest pain or palpitations PULMONARY: Denies shortness of breath GASTROINTESTINAL: Denies constipation/diarrhea GENITOURINARY: denies dysuria MUSCULOSKELETAL: generalized weakness NEUROLOGICAL:+paresthesias LE HEMATOLOGICAL: denies easy bruising SKIN: RLE cellulitis, left plantar eschar, left posterior calf wound PSYCHIATRIC: Unremarkable All other review of systems found to be negative. PHYSICAL EXAMINATION: VITAL SIGNS: Please see below. GENERAL: Pleasant and cooperative. No acute distress. HEENT: PERRL. Extraocular movements intact. Clear conjunctiva CARDIOVASCULAR: Regular rate and rhythm. No murmurs, rubs, or gallops LUNGS: Clear to auscultation bilaterally. No wheezes. No rhonchi ABDOMEN: Soft, nontender, nondistended. Positive bowel sounds. Normal active bowel sounds NEUROLOGICAL: Alert and oriented times three. Cranial nerves II through XII grossly intact. Sensation diminished ti light touch bilat toes in stocking pattern EXTREMITIES: 5-\5 strength bilateral upper extremities. 4\5 strength right lower extremity (limited to due to pain) 5-/5 strength in left lower extremity. SKIN: Right lateral calf wound with granulation tissue, minimal slough, no periwound maceration, scant drainage right medial calf wound epithelialized - right plantar eschar c/d/i -right medial thigh/groin without lesions, -left calf with hyperpigmented skin, left posterior calf with wound with scant serosanguineous drainage -sacrum without erythema LABORATORY DATA: Please see below. ASSESSMENT:83-year-old M with past medical history of PVD, gout who presents status post RLE cellulitis PLAN: 1. Rehab- PT/OT advance gait and ADLs, strengthen/stretch/maintain ROM all 4 limbs, fall recovery, dynamic balance training 2. 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 Cardiac: HTN c/u hydrochlorothiazide and manage BPs accordingly 4. Vasc/ID: patient with PVD with RLE cellulitis, c/u dressing changes, monitor leukocytosis and trend CRP- c/u to trend doen 0.9 today trending down, c/u Zosyn for a 14 day total course of antibiotics, antibiotics usage may be contributing to decrease sense of taste -Right plantar eschar-c/u wound care -left posterior calf wound- c/u wound care per recs -Mural thrombus in left common femoral artery, f/u with vascular on outpatient 5. Resp: hx of AWA, patient reports he stopped using CPAP at home, c/u nocturnal 02 6. Rheum: hx of gout c/u allopurinol 7. Renal: patient with CKD3, will monitor and consider renal consult if Battery Container Inspector worsens 8. Pain: c/u Tylenol and oxycodone, IV morphine for pre-wound dressing change -right knee swelling improved 9. DVT ppx: heparin 10. GI ppx: protonix 11. Dispo: TBD Allergies Coded Allergies: tramadol (Unverified Allergy, Unknown, 06/21/19) Vital Signs Vital Signs Date Time Temp Pulse Resp B/P (MAP) Pulse Ox O2 Delivery O2 Flow Rate FiO2 07/02/19 13:06 16 07/02/19 08:25 58 140/71 07/01/19 20:00 97.3 96 Room Air 06/29/19 06:16 2.0 Laboratory Data CBC/BMP Laboratory Tests 07/02/19 07:12 Labs 24H Laboratory Tests 2 07/02/19 07:12: Immature Granulocyte % (Auto) 1.5, Neutrophils (%) (Auto) 60.4, Lymphocytes (%) (Auto) 25.3, Monocytes (%) (Auto) 9.1H, Eosinophils (%) (Auto) 2.8, Basophils (%) (Auto) 0.9, Neutrophils # (Auto) 5.4, Lymphocytes # (Auto) 2.3, Monocytes # (Auto) 0.8, Eosinophils # (Auto) 0.3, Basophils # (Auto) 0.1, Nucleated Red Blood Cells % (auto) 0.0, Anion Gap 6L, Glomerular Filtration Rate 52.6, Calcium Level 9.4, C-Reactive Protein, Quantitative 0.90H Current Medications Current Medications Current Medications Medications (Trade) Dose Ordered Sig/Ambrose Route PRN Reason Start Time Stop Time Status Last Admin Dose Admin Acetaminophen (Tylenol Tab) 500 mg TID PO 06/28/19 16:00 07/02/19 08:24 Acetaminophen (Tylenol Tab) 1,000 mg TID PO 06/27/19 16:00 06/28/19 12:14 DC 06/28/19 07:53 Allopurinol (Zyloprim) 100 mg DAILY PO 06/28/19 09:00 07/02/19 08:25 Amlodipine Besylate (Norvasc) 5 mg DAILY PO 06/29/19 09:00 07/01/19 07:48 Ascorbic Acid (Vitamin C) 500 mg DAILY PO 06/28/19 09:00 07/02/19 08:26 Bisacodyl (Dulcolax Suppository) 10 mg DAILYPRN PRN [place] CONSTIPATION 06/27/19 15:30 Carbamide Peroxide (Debrox) 5 drop BID AU 06/28/19 09:00 07/01/19 21:01 DC 07/01/19 20:30 Cyclobenzaprine HCl (Flexeril) 5 mg TIDP PRN PO SPASMS 06/27/19 15:30 07/02/19 00:27 Docusate Sodium (Colace) 100 mg BID PO 06/27/19 21:00 07/02/19 08:26 Heparin Sodium (Porcine) (Heparin) 5,000 units Q8H SC 06/27/19 22:00 07/02/19 12:37 Hydrochlorothiazide (Hydrodiuril) 25 mg DAILY PO 06/28/19 09:00 07/01/19 07:48 Lactobacillus Acidophilus (Bacid) 1 ea BIDWM PO 06/27/19 18:00 07/02/19 08:26 Morphine Sulfate (Morphine Sulfate Inj) 2 mg Q3D PRN IV DRESSING CHANGE 06/28/19 10:45 06/29/19 14:37 Oxycodone HCl (Roxicodone, Oxyir) 5 mg 0800,1200,1600 PO 06/29/19 14:45 07/02/19 12:36 Oxycodone HCl (Roxicodone, Oxyir) 5 mg 0800,1200,1600 PO 06/29/19 16:00 06/29/19 14:36 DC Oxycodone HCl (Roxicodone, Oxyir) 5 mg 0800,1200,1600 PO 06/29/19 16:00 06/29/19 14:42 DC 06/29/19 14:40 Oxycodone HCl (Roxicodone, Oxyir) 5 mg Q4HP PRN PO PAIN 06/27/19 15:30 06/29/19 12:52 DC 06/29/19 08:01 Oxycodone HCl (Roxicodone, Oxyir) 5 mg QHS PRN PO PAIN 06/29/19 13:00 06/29/19 21:12 Pantoprazole Sodium (Protonix) 40 mg DAILY PO 06/28/19 09:00 07/02/19 08:26 Piperacillin Sod/ Tazobactam Sod 3.375 gm/Dextrose 50 ml @ 50 mls/hr Q6H IV 06/27/19 18:00 07/05/19 17:59 07/02/19 12:36 Pramipexole Dihydrochloride (Mirapex) 1 mg DAILY PO 06/28/19 09:00 07/02/19 08:24 Prednisone (Deltasone) 10 mg DAILY PO 06/29/19 09:00 07/01/19 09:01 DC 07/01/19 07:49 Ropinirole HCl (Requip) 4 mg QHS PO 06/27/19 21:00 07/01/19 20:29 Senna (Senokot) 1 tab QHS PO 06/27/19 21:00 07/01/19 20:29 Zinc Sulfate (Zinc Sulfate) 220 mg DAILY PO 06/28/19 09:00 07/02/19 08:24 FERNIE GUEVARA MD Jul 02, 2019 14:26
[2019-07-02] MEDS: MORPHINE 2 MG/ML 1ML VIAL (J2270) IV PRN (14:43)
[2019-07-02] MEDS: rOPINIRole 2MG TAB PO SCH (20:00)
[2019-07-02] MEDS: SENNA 8.6 MG TAB (SENOKOT) PO SCH (20:00)
[2019-07-03] MEDS: HEPARIN SOD (PORCINE) 5000UNITS/ML VIAL (J1644 PER 1000UNITS) SC SCH ×3 (05:42→21:17)
[2019-07-03] MEDS: PIPERACILLIN/TAZOBACTAM SOD 3.375 GM in D5W MINI-BAG PLUS 50 ML IV SCH ×3 (05:43→17:30)
[2019-07-03 06:00] VITALS: BP 125/61
[2019-07-03] MEDS: DOCUSATE SODIUM 100 MG CAP PO SCH ×2 (09:47→21:16)
[2019-07-03] MEDS: LACTOBACILLUS ACIDOPHILUS CAP (BACID) PO SCH ×2 (09:47→17:29)
[2019-07-03] MEDS: ACETAMINOPHEN 500 MG TAB PO SCH ×3 (09:48→21:16)
[2019-07-03] MEDS: oxyCODONE 5MG TAB PO SCH ×3 (09:48→15:45)
[2019-07-03] MEDS: PANTOPRAZOLE 40MG TAB (PROTONIX) PO SCH (09:48)
[2019-07-03] MEDS: allopurinoL 100 MG TAB PO SCH (09:49)
[2019-07-03] MEDS: hydroCHLOROthiazide 25 MG TAB PO SCH (09:49)
[2019-07-03] MEDS: PRAMIPEXOLE 1 MG TAB PO SCH (09:49)
[2019-07-03] MEDS: ASCORBIC ACID 500 MG TAB PO SCH (09:50)
[2019-07-03] MEDS: amLODIPine 5 MG TAB PO SCH (09:50)
[2019-07-03] MEDS: ZINC SULFATE 220 MG CAP PO SCH (09:56)
[2019-07-03] MEDS: REMEDY PHYTOPLEX Z-GUARD PASTE 113GM TUBE (FROM STOREROOM PRODUCT) TOP SCH ×3 (09:57→21:17)
[2019-07-03 14:00] VITALS: BP 141/79
[2019-07-03] MEDS ORDERED: SANTYL OINT 30GM TOP SCH (14:45)
[2019-07-03 20:00] VITALS: BP 138/70
[2019-07-03] MEDS: rOPINIRole 2MG TAB PO SCH (21:15)
[2019-07-03] MEDS: zolPIDEM TARTRATE 5 MG TAB PO SCH (21:16)
[2019-07-03] MEDS: SENNA 8.6 MG TAB (SENOKOT) PO SCH (21:16)
[2019-07-04] MEDS: PIPERACILLIN/TAZOBACTAM SOD 3.375 GM in D5W MINI-BAG PLUS 50 ML IV SCH ×4 (00:06→17:40)
[2019-07-04 06:00] VITALS: BP 137/63
[2019-07-04] MEDS: HEPARIN SOD (PORCINE) 5000UNITS/ML VIAL (J1644 PER 1000UNITS) SC SCH ×3 (06:14→21:04)
[2019-07-04 07:10] LABS: C REACTIVE PROTEIN QUANTITATIV 2.02 MG/DL (0.00-0.30); CREATININE FOR GFR 1.37 MG/DL (0.70-1.30); GLOMERULAR FILTRATION RATE 53.1 (>35); POTASSIUM SERUM 4.9 MEQ/L (3.5-5.1)
[2019-07-04 07:46] LABS: BASO # 0.1 10^3/uL (0.0-0.2); EOS # 0.4 10^3/uL (0.0-0.5); EOS % 4.8 % (0.0-3.0); HEMOGLOBIN 14.9 g/dl (13.5-17.5); LYMPH # 1.4 10^3/uL (1.5-5.0); LYMPH % 16.5 % (24.0-44.0); MEAN CORPUSCULAR HEMOGLOBIN 34.1 pg (27.0-33.0); MEAN CORPUSCULAR HGB CONC 33.9 g/dl (32.0-36.5); MEAN CORPUSCULAR VOLUME 100.7 fl (80.0-96.0); MONO # 0.9 10^3/uL (0.0-0.8); MONO % 10.1 % (0.0-5.0); NEUTROPHILS # 5.6 10^3/uL (1.5-8.5); NEUTROPHILS % 66.5 % (36.0-66.0); PLATELET COUNT, AUTOMATED 308 10^3/uL (150-450); RED BLOOD COUNT 4.37 10^6/uL (4.30-6.10); WHITE BLOOD COUNT 8.4 10^3/uL (4.0-10.0)
[2019-07-04] MEDS: hydroCHLOROthiazide 25 MG TAB PO SCH (09:58)
[2019-07-04] MEDS: ACETAMINOPHEN 500 MG TAB PO SCH ×3 (09:58→21:04)
[2019-07-04] MEDS: PRAMIPEXOLE 1 MG TAB PO SCH (09:58)
[2019-07-04] MEDS: ASCORBIC ACID 500 MG TAB PO SCH (09:59)
[2019-07-04] MEDS: PANTOPRAZOLE 40MG TAB (PROTONIX) PO SCH (09:59)
[2019-07-04] MEDS: allopurinoL 100 MG TAB PO SCH (09:59)
[2019-07-04] MEDS: amLODIPine 5 MG TAB PO SCH (09:59)
[2019-07-04] MEDS: DOCUSATE SODIUM 100 MG CAP PO SCH ×2 (09:59→21:04)
[2019-07-04] MEDS: LACTOBACILLUS ACIDOPHILUS CAP (BACID) PO SCH ×2 (09:59→17:40)
[2019-07-04] MEDS: oxyCODONE 5MG TAB PO SCH ×3 (10:00→15:00)
[2019-07-04] MEDS: ZINC SULFATE 220 MG CAP PO SCH (10:02)
[2019-07-04] MEDS: REMEDY PHYTOPLEX Z-GUARD PASTE 113GM TUBE (FROM STOREROOM PRODUCT) TOP SCH ×3 (10:02→21:05)
--- NOTE | 2019-07-04 12:15 | IPNPDOC ---
PM&R Progress Note DATE OF SERVICE: Jul 03, 2019 Transit Department Clerk Progress Note Subjective: Patient was seen today and wound redressed due to slightly more swelling and erythema at the proximal calf. Patient reporting his right leg is less painful and overall feels less swollen still. REVIEW OF SYSTEMS: The following is a completed review of systems and has been reviewed. Review of systems otherwise unremarkable. PAIN: Patient self reports right knee pain EYES: No recent vision changes EARS, NOSE, & THROAT: No throat pain, or dysphagia, or rhinorrhea CARDIOVASCULAR: Denies chest pain or palpitations PULMONARY: Denies shortness of breath GASTROINTESTINAL: Denies constipation/diarrhea GENITOURINARY: denies dysuria MUSCULOSKELETAL: generalized weakness NEUROLOGICAL:+paresthesias LE HEMATOLOGICAL: denies easy bruising SKIN: RLE cellulitis, left plantar eschar, left posterior calf wound PSYCHIATRIC: Unremarkable All other review of systems found to be negative. PHYSICAL EXAMINATION: VITAL SIGNS: Please see below. GENERAL: Pleasant and cooperative. No acute distress. HEENT: PERRL. Extraocular movements intact. Clear conjunctiva CARDIOVASCULAR: Regular rate and rhythm. No murmurs, rubs, or gallops LUNGS: Clear to auscultation bilaterally. No wheezes. No rhonchi ABDOMEN: Soft, nontender, nondistended. Positive bowel sounds. Normal active bowel sounds NEUROLOGICAL: Alert and oriented times three. Cranial nerves II through XII grossly intact. Sensation diminished ti light touch bilat toes in stocking pattern EXTREMITIES: 5-\5 strength bilateral upper extremities. 4\5 strength right lower extremity (limited to due to pain) 5-/5 strength in left lower extremity. SKIN: Right lateral calf wound with granulation tissue, minimal slough, no periwound maceration, scant drainage right medial calf wound epithelialized, slightly more erythema and swelling at the proximal anterior calf - right plantar eschar c/d/i -right medial thigh/groin without lesions, -left calf with hyperpigmented skin, left posterior calf with wound with scant serosanguineous drainage -sacrum without erythema LABORATORY DATA: Please see below. ASSESSMENT:83-year-old M with past medical history of PVD, gout who presents status post RLE cellulitis PLAN: 1. Rehab- PT/OT advance gait and ADLs, strengthen/stretch/maintain ROM all 4 limbs, fall recovery, dynamic balance training 2. 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 Cardiac: HTN c/u hydrochlorothiazide and manage BPs accordingly 4. Vasc/ID: patient with PVD with RLE cellulitis, c/u dressing changes (changed again today), monitor leukocytosis and trend CRP which is trending down, c/u to trendy trending down, c/u Zosyn for a 14 day total course of antibiotics, antibiotics usage may be contributing to decrease sense of taste -Right plantar eschar-c/u wound care -left posterior calf wound- c/u wound care per recs -Mural thrombus in left common femoral artery, f/u with vascular on outpatient 5. Resp: hx of AWA, patient reports he stopped using CPAP at home, c/u nocturnal 02 6. Rheum: hx of gout c/u allopurinol 7. Renal: patient with CKD3, will monitor and consider renal consult if Health Education Specialist worsens 8. Pain: c/u Tylenol and oxycodone, IV morphine for pre-wound dressing change -right knee swelling improved 9. DVT ppx: heparin 10. GI ppx: protonix 11. Dispo: 07-06-19 to home Allergies Coded Allergies: tramadol (Unverified Allergy, Unknown, 06/21/19) Vital Signs Vital Signs Date Time Temp Pulse Resp B/P (MAP) Pulse Ox O2 Delivery O2 Flow Rate FiO2 07/04/19 10:30 16 07/04/19 09:59 78 137/63 07/04/19 06:00 97.4 99 Room Air 06/29/19 06:16 2.0 Laboratory Data CBC/BMP Laboratory Tests 07/04/19 06:06 07/04/19 07:19 Labs 24H Laboratory Tests 2 07/04/19 06:06: Anion Gap 8, Glomerular Filtration Rate 53.1, Calcium Level 9.0, C-Reactive Protein, Quantitative 2.02H 07/04/19 07:19: Immature Granulocyte % (Auto) 1.1, Neutrophils (%) (Auto) 66.5H, Lymphocytes (%) (Auto) 16.5L, Monocytes (%) (Auto) 10.1H, Eosinophils (%) (Auto) 4.8H, Basophils (%) (Auto) 1.0, Neutrophils # (Auto) 5.6, Lymphocytes # (Auto) 1.4L, Monocytes # (Auto) 0.9H, Eosinophils # (Auto) 0.4, Basophils # (Auto) 0.1, Nucleated Red Blood Cells % (auto) 0.0 Current Medications Current Medications Current Medications Medications (Trade) Dose Ordered Sig/Ambrose Route PRN Reason Start Time Stop Time Status Last Admin Dose Admin Acetaminophen (Tylenol Tab) 500 mg TID PO 06/28/19 16:00 07/04/19 09:58 Acetaminophen (Tylenol Tab) 1,000 mg TID PO 06/27/19 16:00 06/28/19 12:14 DC 06/28/19 07:53 Allopurinol (Zyloprim) 100 mg DAILY PO 06/28/19 09:00 07/04/19 09:59 Amlodipine Besylate (Norvasc) 5 mg DAILY PO 06/29/19 09:00 07/04/19 09:59 Ascorbic Acid (Vitamin C) 500 mg DAILY PO 06/28/19 09:00 07/04/19 09:59 Bisacodyl (Dulcolax Suppository) 10 mg DAILYPRN PRN [place] CONSTIPATION 06/27/19 15:30 Carbamide Peroxide (Debrox) 5 drop BID AU 06/28/19 09:00 07/01/19 21:01 DC 07/01/19 20:30 Collagenase (Santyl) apply with each dress... ASDIRECTED TOP 07/03/19 14:45 Cyclobenzaprine HCl (Flexeril) 5 mg TIDP PRN PO SPASMS 06/27/19 15:30 07/02/19 00:27 Docusate Sodium (Colace) 100 mg BID PO 06/27/19 21:00 07/04/19 09:59 Heparin Sodium (Porcine) (Heparin) 5,000 units Q8H SC 06/27/19 22:00 07/04/19 06:14 Hydrochlorothiazide (Hydrodiuril) 25 mg DAILY PO 06/28/19 09:00 07/04/19 09:58 Lactobacillus Acidophilus (Bacid) 1 ea BIDWM PO 06/27/19 18:00 07/04/19 09:59 Morphine Sulfate (Morphine Sulfate Inj) 2 mg Q3D PRN IV DRESSING CHANGE 06/28/19 10:45 07/02/19 14:43 Oxycodone HCl (Roxicodone, Oxyir) 5 mg 0800,1200,1600 PO 06/29/19 14:45 07/04/19 10:00 Oxycodone HCl (Roxicodone, Oxyir) 5 mg 0800,1200,1600 PO 06/29/19 16:00 06/29/19 14:36 DC Oxycodone HCl (Roxicodone, Oxyir) 5 mg 0800,1200,1600 PO 06/29/19 16:00 06/29/19 14:42 DC 06/29/19 14:40 Oxycodone HCl (Roxicodone, Oxyir) 5 mg Q4HP PRN PO PAIN 06/27/19 15:30 06/29/19 12:52 DC 06/29/19 08:01 Oxycodone HCl (Roxicodone, Oxyir) 5 mg QHS PRN PO PAIN 06/29/19 13:00 06/29/19 21:12 Pantoprazole Sodium (Protonix) 40 mg DAILY PO 06/28/19 09:00 07/04/19 09:59 Piperacillin Sod/ Tazobactam Sod 3.375 gm/Dextrose 50 ml @ 50 mls/hr Q6H IV 06/27/19 18:00 07/05/19 17:59 07/04/19 06:14 Pramipexole Dihydrochloride (Mirapex) 1 mg DAILY PO 06/28/19 09:00 07/04/19 09:58 Prednisone (Deltasone) 10 mg DAILY PO 06/29/19 09:00 07/01/19 09:01 DC 07/01/19 07:49 Ropinirole HCl (Requip) 4 mg QHS PO 06/27/19 21:00 07/03/19 21:15 Senna (Senokot) 1 tab QHS PO 06/27/19 21:00 07/03/19 21:16 Zinc Sulfate (Zinc Sulfate) 220 mg DAILY PO 06/28/19 09:00 07/04/19 10:02 Zolpidem Tartrate (Ambien) 5 mg QHS PO 07/03/19 21:00 07/03/19 21:16 FERINE GUEVARA MD Jul 04, 2019 12:15
--- NOTE | 2019-07-04 12:20 | IPNPDOC ---
PM&R Progress Note DATE OF SERVICE: Jul 04, 2019 Sales Compensation Analyst Progress Note Subjective: Patient seen in OT stating his right leg and knee continue to feel better. He is agreeable to having close follow-up with local wound care specialists and infectious disease since he has not had consistent care from a primary care provider. REVIEW OF SYSTEMS: The following is a completed review of systems and has been reviewed. Review of systems otherwise unremarkable. PAIN: Patient self reports right knee pain EYES: No recent vision changes EARS, NOSE, & THROAT: No throat pain, or dysphagia, or rhinorrhea CARDIOVASCULAR: Denies chest pain or palpitations PULMONARY: Denies shortness of breath GASTROINTESTINAL: Denies constipation/diarrhea GENITOURINARY: denies dysuria MUSCULOSKELETAL: generalized weakness NEUROLOGICAL:+paresthesias LE HEMATOLOGICAL: denies easy bruising SKIN: RLE cellulitis, left plantar eschar, left posterior calf wound PSYCHIATRIC: Unremarkable All other review of systems found to be negative. PHYSICAL EXAMINATION: VITAL SIGNS: Please see below. GENERAL: Pleasant and cooperative. No acute distress. HEENT: PERRL. Extraocular movements intact. Clear conjunctiva CARDIOVASCULAR: Regular rate and rhythm. No murmurs, rubs, or gallops LUNGS: Clear to auscultation bilaterally. No wheezes. No rhonchi ABDOMEN: Soft, nontender, nondistended. Positive bowel sounds. Normal active bowel sounds NEUROLOGICAL: Alert and oriented times three. Cranial nerves II through XII grossly intact. Sensation diminished ti light touch bilat toes in stocking pattern EXTREMITIES: 5-\5 strength bilateral upper extremities. 4\5 strength right lower extremity (limited to due to pain) 5-/5 strength in left lower extremity. SKIN: Right lateral calf wound with granulation tissue, minimal slough, no periwound maceration, scant drainage (not examined today) right medial calf wound epithelialized, slightly more erythema and swelling at the proximal anterior calf, but less compared to 07-03-19 exam - right plantar eschar c/d/i (not examined today) -right medial thigh/groin without lesions -left calf with hyperpigmented skin, left posterior calf with wound with scant serosanguineous drainage (not examined today) -sacrum without erythema (not examined today) LABORATORY DATA: Please see below. ASSESSMENT:83-year-old M with past medical history of PVD, gout who presents status post RLE cellulitis PLAN: 1. Rehab- PT/OT advance gait and ADLs, strengthen/stretch/maintain ROM all 4 limbs, fall recovery, dynamic balance training 2. 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 Cardiac: HTN c/u hydrochlorothiazide and manage BPs accordingly 4. Vasc/ID: patient with PVD with RLE cellulitis, c/u dressing changes (changed 07-03-19), monitor leukocytosis and trend CRP which is trending down, c/u to trendy trending down, c/u Zosyn for a 14 day total course of antibiotics, antibiotics usage may be contributing to decrease sense of taste -Right plantar eschar-c/u wound care -left posterior calf wound- c/u wound care per recs -Mural thrombus in left common femoral artery, f/u with vascular on outpatient 5. Resp: hx of AWA, patient reports he stopped using CPAP at home, c/u nocturnal 02 6. Rheum: hx of gout c/u allopurinol 7. Renal: patient with CKD3, will monitor and consider renal consult if Food And Beverage Associate worsens 8. Pain: c/u Tylenol and oxycodone, IV morphine for pre-wound dressing change -right knee swelling improved 9. DVT ppx: heparin 10. GI ppx: protonix 11. Dispo: 07-06-19 to home Allergies Coded Allergies: tramadol (Unverified Allergy, Unknown, 06/21/19) Vital Signs Vital Signs Date Time Temp Pulse Resp B/P (MAP) Pulse Ox O2 Delivery O2 Flow Rate FiO2 07/04/19 10:30 16 07/04/19 09:59 78 137/63 07/04/19 06:00 97.4 99 Room Air 06/29/19 06:16 2.0 Laboratory Data CBC/BMP Laboratory Tests 07/04/19 06:06 07/04/19 07:19 Labs 24H Laboratory Tests 2 07/04/19 06:06: Anion Gap 8, Glomerular Filtration Rate 53.1, Calcium Level 9.0, C-Reactive Protein, Quantitative 2.02H 07/04/19 07:19: Immature Granulocyte % (Auto) 1.1, Neutrophils (%) (Auto) 66.5H, Lymphocytes (%) (Auto) 16.5L, Monocytes (%) (Auto) 10.1H, Eosinophils (%) (Auto) 4.8H, Basophils (%) (Auto) 1.0, Neutrophils # (Auto) 5.6, Lymphocytes # (Auto) 1.4L, Monocytes # (Auto) 0.9H, Eosinophils # (Auto) 0.4, Basophils # (Auto) 0.1, Nucleated Red Blood Cells % (auto) 0.0 Current Medications Current Medications Current Medications Medications (Trade) Dose Ordered Sig/Ambrose Route PRN Reason Start Time Stop Time Status Last Admin Dose Admin Acetaminophen (Tylenol Tab) 500 mg TID PO 06/28/19 16:00 07/04/19 09:58 Acetaminophen (Tylenol Tab) 1,000 mg TID PO 06/27/19 16:00 06/28/19 12:14 DC 06/28/19 07:53 Allopurinol (Zyloprim) 100 mg DAILY PO 06/28/19 09:00 07/04/19 09:59 Amlodipine Besylate (Norvasc) 5 mg DAILY PO 06/29/19 09:00 07/04/19 09:59 Ascorbic Acid (Vitamin C) 500 mg DAILY PO 06/28/19 09:00 07/04/19 09:59 Bisacodyl (Dulcolax Suppository) 10 mg DAILYPRN PRN [place] CONSTIPATION 06/27/19 15:30 Carbamide Peroxide (Debrox) 5 drop BID AU 06/28/19 09:00 07/01/19 21:01 DC 07/01/19 20:30 Collagenase (Santyl) apply with each dress... ASDIRECTED TOP 07/03/19 14:45 Cyclobenzaprine HCl (Flexeril) 5 mg TIDP PRN PO SPASMS 06/27/19 15:30 07/02/19 00:27 Docusate Sodium (Colace) 100 mg BID PO 06/27/19 21:00 07/04/19 09:59 Heparin Sodium (Porcine) (Heparin) 5,000 units Q8H SC 06/27/19 22:00 07/04/19 06:14 Hydrochlorothiazide (Hydrodiuril) 25 mg DAILY PO 06/28/19 09:00 07/04/19 09:58 Lactobacillus Acidophilus (Bacid) 1 ea BIDWM PO 06/27/19 18:00 07/04/19 09:59 Morphine Sulfate (Morphine Sulfate Inj) 2 mg Q3D PRN IV DRESSING CHANGE 06/28/19 10:45 07/02/19 14:43 Oxycodone HCl (Roxicodone, Oxyir) 5 mg 0800,1200,1600 PO 06/29/19 14:45 07/04/19 10:00 Oxycodone HCl (Roxicodone, Oxyir) 5 mg 0800,1200,1600 PO 06/29/19 16:00 06/29/19 14:36 DC Oxycodone HCl (Roxicodone, Oxyir) 5 mg 0800,1200,1600 PO 06/29/19 16:00 06/29/19 14:42 DC 06/29/19 14:40 Oxycodone HCl (Roxicodone, Oxyir) 5 mg Q4HP PRN PO PAIN 06/27/19 15:30 06/29/19 12:52 DC 06/29/19 08:01 Oxycodone HCl (Roxicodone, Oxyir) 5 mg QHS PRN PO PAIN 06/29/19 13:00 06/29/19 21:12 Pantoprazole Sodium (Protonix) 40 mg DAILY PO 06/28/19 09:00 07/04/19 09:59 Piperacillin Sod/ Tazobactam Sod 3.375 gm/Dextrose 50 ml @ 50 mls/hr Q6H IV 06/27/19 18:00 07/05/19 17:59 07/04/19 06:14 Pramipexole Dihydrochloride (Mirapex) 1 mg DAILY PO 06/28/19 09:00 07/04/19 09:58 Prednisone (Deltasone) 10 mg DAILY PO 06/29/19 09:00 07/01/19 09:01 DC 07/01/19 07:49 Ropinirole HCl (Requip) 4 mg QHS PO 06/27/19 21:00 07/03/19 21:15 Senna (Senokot) 1 tab QHS PO 06/27/19 21:00 07/03/19 21:16 Zinc Sulfate (Zinc Sulfate) 220 mg DAILY PO 06/28/19 09:00 07/04/19 10:02 Zolpidem Tartrate (Ambien) 5 mg QHS PO 07/03/19 21:00 07/03/19 21:16 FERNIE GUEVARA MD Jul 04, 2019 12:20
[2019-07-04 14:00] VITALS: BP 130/67
[2019-07-04 20:00] VITALS: BP 134/70
[2019-07-04] MEDS: rOPINIRole 2MG TAB PO SCH (21:04)
[2019-07-04] MEDS: SENNA 8.6 MG TAB (SENOKOT) PO SCH (21:04)
[2019-07-04] MEDS: zolPIDEM TARTRATE 5 MG TAB PO SCH (21:04)
[2019-07-05] MEDS: PIPERACILLIN/TAZOBACTAM SOD 3.375 GM in D5W MINI-BAG PLUS 50 ML IV SCH ×3 (00:07→14:15)
[2019-07-05] MEDS: HEPARIN SOD (PORCINE) 5000UNITS/ML VIAL (J1644 PER 1000UNITS) SC SCH ×3 (05:56→21:36)
[2019-07-05 06:00] VITALS: BP 151/70
[2019-07-05] MEDS: ZINC SULFATE 220 MG CAP PO SCH (08:59)
[2019-07-05] MEDS: LACTOBACILLUS ACIDOPHILUS CAP (BACID) PO SCH ×2 (08:59→17:09)
[2019-07-05] MEDS: hydroCHLOROthiazide 25 MG TAB PO SCH (08:59)
[2019-07-05] MEDS: PANTOPRAZOLE 40MG TAB (PROTONIX) PO SCH (08:59)
[2019-07-05] MEDS: ASCORBIC ACID 500 MG TAB PO SCH (08:59)
[2019-07-05] MEDS: DOCUSATE SODIUM 100 MG CAP PO SCH ×2 (08:59→21:36)
[2019-07-05] MEDS: allopurinoL 100 MG TAB PO SCH (09:00)
[2019-07-05] MEDS: amLODIPine 5 MG TAB PO SCH (09:00)
[2019-07-05] MEDS: ACETAMINOPHEN 500 MG TAB PO SCH ×3 (09:01→21:36)
[2019-07-05] MEDS: oxyCODONE 5MG TAB PO SCH (09:01)
[2019-07-05] MEDS: PRAMIPEXOLE 1 MG TAB PO SCH (09:07)
[2019-07-05] MEDS: REMEDY PHYTOPLEX Z-GUARD PASTE 113GM TUBE (FROM STOREROOM PRODUCT) TOP SCH ×3 (09:08→21:37)
[2019-07-05] MEDS ORDERED: oxyCODONE 5MG TAB PO PRN (11:45)
[2019-07-05 14:00] VITALS: BP 152/71
[2019-07-05 20:00] VITALS: BP 133/66
[2019-07-05] MEDS: rOPINIRole 2MG TAB PO SCH (21:36)
[2019-07-05] MEDS: SENNA 8.6 MG TAB (SENOKOT) PO SCH (21:36)
[2019-07-05] MEDS: zolPIDEM TARTRATE 5 MG TAB PO SCH (21:36)
[2019-07-06] MEDS: HEPARIN SOD (PORCINE) 5000UNITS/ML VIAL (J1644 PER 1000UNITS) SC SCH (05:59)
[2019-07-06 06:00] VITALS: BP 140/68
[2019-07-06 08:05] LABS: BASO # 0.1 10^3/uL (0.0-0.2); BASO % 1.2 % (0.0-1.0); EOS # 0.5 10^3/uL (0.0-0.5); EOS % 6.3 % (0.0-3.0); HEMATOCRIT 46.8 % (42.0-52.0); HEMOGLOBIN 16.1 g/dl (13.5-17.5); LYMPH # 1.5 10^3/uL (1.5-5.0); LYMPH % 20.4 % (24.0-44.0); MEAN CORPUSCULAR HEMOGLOBIN 34.6 pg (27.0-33.0); MEAN CORPUSCULAR HGB CONC 34.4 g/dl (32.0-36.5); MEAN CORPUSCULAR VOLUME 100.6 fl (80.0-96.0); MONO # 0.7 10^3/uL (0.0-0.8); MONO % 9.4 % (0.0-5.0); NEUTROPHILS # 4.7 10^3/uL (1.5-8.5); PLATELET COUNT, AUTOMATED 264 10^3/uL (150-450); RED BLOOD COUNT 4.65 10^6/uL (4.30-6.10); WHITE BLOOD COUNT 7.6 10^3/uL (4.0-10.0)
[2019-07-06 08:40] LABS: BLOOD UREA NITROGEN 19 MG/DL (7-18); C REACTIVE PROTEIN QUANTITATIV 2.01 MG/DL (0.00-0.30); CALCIUM LEVEL 9.8 MG/DL (8.8-10.2); CARBON DIOXIDE LEVEL 29 MEQ/L (21-32); CHLORIDE LEVEL 102 MEQ/L (98-107); GLOMERULAR FILTRATION RATE > 60.0 (>35); GLUCOSE, FASTING 111 MG/DL (70-100); POTASSIUM SERUM 3.4 MEQ/L (3.5-5.1); SODIUM LEVEL 139 MEQ/L (136-145)
[2019-07-06] MEDS ORDERED: POTASSIUM CHLORIDE 10 MEQ SR TABLET PO SCH (09:00)
[2019-07-06] MEDS: REMEDY PHYTOPLEX Z-GUARD PASTE 113GM TUBE (FROM STOREROOM PRODUCT) TOP SCH (09:00)
[2019-07-06] MEDS ORDERED: BACTRIM 160MG/800MG DS TAB PO SCH (09:00)
[2019-07-06] MEDS: DOCUSATE SODIUM 100 MG CAP PO SCH (09:07)
[2019-07-06] MEDS: allopurinoL 100 MG TAB PO SCH (09:08)
[2019-07-06] MEDS: PRAMIPEXOLE 1 MG TAB PO SCH (09:08)
[2019-07-06] MEDS: PANTOPRAZOLE 40MG TAB (PROTONIX) PO SCH (09:08)
[2019-07-06] MEDS: ASCORBIC ACID 500 MG TAB PO SCH (09:08)
[2019-07-06] MEDS: ZINC SULFATE 220 MG CAP PO SCH (09:08)
[2019-07-06] MEDS: ACETAMINOPHEN 500 MG TAB PO SCH (09:08)
[2019-07-06] MEDS: LACTOBACILLUS ACIDOPHILUS CAP (BACID) PO SCH (09:08)
[2019-07-06 09:09] VITALS: BP 140/68
[2019-07-06] MEDS: hydroCHLOROthiazide 25 MG TAB PO SCH (09:09)
[2019-07-06] MEDS: amLODIPine 5 MG TAB PO SCH (09:09)
[2019-07-06] MEDS: KCL 10MEQ/100ML SWI (KRUN) 10 MEQ in IV 1 EA IV SCH ×2 (09:42→10:48)
[2019-07-06] MEDS ORDERED: SULF1TAB93 PO (10:48)
[2019-07-06] MEDS ORDERED: SANT250O8 TOP (10:48)
[2019-07-06] MEDS ORDERED: HYDR25TAB PO (10:48)
[2019-07-06] MEDS ORDERED: ZINC220CA PO (10:48)
[2019-07-06] MEDS ORDERED: KLOR10TA76 PO (10:48)
[2019-07-06] MEDS ORDERED: RISATAB3 PO (10:48)
[2019-07-06] MEDS ORDERED: AMLO5TAB6 PO (10:48)
[2019-07-06] MEDS ORDERED: ALLO10TA PO (10:48)
[2019-07-06] MEDS ORDERED: ASCO50TA PO (10:48)
[2019-07-06] MEDS ORDERED: MIRA1TAB3 PO (10:48)
[2019-07-06] MEDS ORDERED: ROPI2TAB3 PO (10:48)
[2019-07-06 12:55] LABS: BLOOD UREA NITROGEN 19 MG/DL (7-18); CALCIUM LEVEL 9.6 MG/DL (8.8-10.2); CARBON DIOXIDE LEVEL 29 MEQ/L (21-32); CHLORIDE LEVEL 102 MEQ/L (98-107); CREATININE FOR GFR 1.16 MG/DL (0.70-1.30); GLOMERULAR FILTRATION RATE > 60.0 (>35); GLUCOSE, FASTING 97 MG/DL (70-100); POTASSIUM SERUM 4.1 MEQ/L (3.5-5.1); SODIUM LEVEL 138 MEQ/L (136-145)
== END 2019-07-06 13:45 | disposition home health service (06) | DRG 74 ==
LOC: M 4MAIN 15:45 → M PM&R 16:28
PROVIDERS: ADMIT Physical Medicine & Rehabilitation; ATTEND Physical Medicine & Rehabilitation
DX: G62.9 Polyneuropathy, unspecified (principal); L97.229 Non-pressure chronic ulcer of left calf with unspecified severity; I74.3 Embolism and thrombosis of arteries of the lower extremities; L97.519 Non-pressure chronic ulcer of other part of right foot with unspecified severity; I70.235 Atherosclerosis of native arteries of right leg with ulceration of other part of foot; R53.81 Other malaise; I87.2 Venous insufficiency (chronic) (peripheral); R26.89 Other abnormalities of gait and mobility; I12.9 Hypertensive chronic kidney disease with stage 1 through stage 4 chronic kidney disease, or unspecified chronic kidney disease; K21.9 Gastro-esophageal reflux disease without esophagitis; N18.3 Chronic kidney disease, stage 3 (moderate); Z66 Do not resuscitate; R51 Headache; I70.242 Atherosclerosis of native arteries of left leg with ulceration of calf; M10.9 Gout, unspecified; G47.33 Obstructive sleep apnea (adult) (pediatric); R20.2 Paresthesia of skin; G25.81 Restless legs syndrome; E83.119 Hemochromatosis, unspecified; R53.1 Weakness; K75.81 Nonalcoholic steatohepatitis (NASH); Z88.5 Allergy status to narcotic agent; Z85.9 Personal history of malignant neoplasm, unspecified; Z79.899 Other long term (current) drug therapy; Z86.718 Personal history of other venous thrombosis and embolism

== ENCOUNTER → 2019-07-10 | Outpatient (REF) | payer MEDICARE, OTHER ==
[~2019-07-10] MED LIST changes: +ALLO10TA PO; +AMLO5TAB6 PO; +ASCO50TA PO; +KLOR10TA76 PO; +RISATAB3 PO; +ROPI2TAB3 PO; +SANT250O8 TOP; +SULF1TAB93 PO; +ZINC220CA PO
[2019-07-10 14:30] LABS: BASO # 0.1 10^3/uL (0.0-0.2); EOS # 0.4 10^3/uL (0.0-0.5); EOS % 5.5 % (0.0-3.0); HEMATOCRIT 41.8 % (42.0-52.0); HEMOGLOBIN 14.7 g/dl (13.5-17.5); LYMPH # 1.1 10^3/uL (1.5-5.0); LYMPH % 16.4 % (24.0-44.0); MEAN CORPUSCULAR HGB CONC 35.2 g/dl (32.0-36.5); MEAN CORPUSCULAR VOLUME 99.5 fl (80.0-96.0); MONO % 15.2 % (0.0-5.0); NEUTROPHILS # 4.1 10^3/uL (1.5-8.5); NEUTROPHILS % 60.9 % (36.0-66.0); PLATELET COUNT, AUTOMATED 208 10^3/uL (150-450); WHITE BLOOD COUNT 6.7 10^3/uL (4.0-10.0)
[2019-07-10 14:49] LABS: C REACTIVE PROTEIN QUANTITATIV 1.44 MG/DL (0.00-0.30); CALCIUM LEVEL 9.8 MG/DL (8.8-10.2); CREATININE FOR GFR 1.53 MG/DL (0.70-1.30); GLOMERULAR FILTRATION RATE 46.7 (>35); POTASSIUM SERUM 3.9 MEQ/L (3.5-5.1)
[2019-07-10 14:55] LABS: ERYTHROCYTE SEDIMENTATION RATE 34 mm/hr (0-20)
== END ==
LOC: M SFHCPLAZ 12:07
PROVIDERS: ATTEND Internal Medicine Infectious Disease
DX: L03.115 Cellulitis of right lower limb (principal)
CPT/HCPCS: 36415; 80048; 85025; 85652; 86140; G0463

== ENCOUNTER → 2019-07-12 | Outpatient (CLI) | payer MEDICARE, BC ==
--- NOTE | 2019-07-12 10:19 | REP ---
Right lower extremity Duplex Doppler venous ultrasound: Real time compression and duplex Doppler interrogation of the right lower extremity deep venous system is performed. The right common femoral, superficial femoral and popliteal veins are fully compressible with transducer pressure and demonstrate normal spontaneous and phasic flow, without evidence of deep venous thrombosis. Impression: No evidence of deep venous thrombosis of the right lower extremity femoral popliteal venous system.
== END ==
LOC: M WHC 08:50
PROVIDERS: ATTEND Internal Medicine Infectious Disease
DX: L03.115 Cellulitis of right lower limb (principal); M79.89 Other specified soft tissue disorders
CPT/HCPCS: 93971; G0463

== ENCOUNTER → 2019-08-01 | Outpatient (REF) | payer MEDICARE, OTHER ==
[2019-08-01 13:49] LABS: BASO # 0.1 10^3/uL (0.0-0.2); BASO % 0.6 % (0.0-1.0); EOS # 0.8 10^3/uL (0.0-0.5); HEMATOCRIT 39.9 % (42.0-52.0); HEMOGLOBIN 13.6 g/dl (13.5-17.5); LYMPH # 1.5 10^3/uL (1.5-5.0); LYMPH % 15.5 % (24.0-44.0); MEAN CORPUSCULAR HEMOGLOBIN 34.5 pg (27.0-33.0); MEAN CORPUSCULAR HGB CONC 34.1 g/dl (32.0-36.5); MEAN CORPUSCULAR VOLUME 101.3 fl (80.0-96.0); MONO # 1.1 10^3/uL (0.0-0.8); MONO % 10.8 % (0.0-5.0); NEUTROPHILS # 6.3 10^3/uL (1.5-8.5); NEUTROPHILS % 64.7 % (36.0-66.0); PLATELET COUNT, AUTOMATED 241 10^3/uL (150-450); RED BLOOD COUNT 3.94 10^6/uL (4.30-6.10); WHITE BLOOD COUNT 9.7 10^3/uL (4.0-10.0)
[2019-08-01 14:11] LABS: BLOOD UREA NITROGEN 26 MG/DL (7-18); C REACTIVE PROTEIN QUANTITATIV 1.79 MG/DL (0.00-0.30); CALCIUM LEVEL 9.5 MG/DL (8.8-10.2); CARBON DIOXIDE LEVEL 30 MEQ/L (21-32); CHLORIDE LEVEL 103 MEQ/L (98-107); CREATININE FOR GFR 1.05 MG/DL (0.70-1.30); GLOMERULAR FILTRATION RATE > 60.0 (>35); GLUCOSE, FASTING 93 MG/DL (70-100); POTASSIUM SERUM 3.8 MEQ/L (3.5-5.1); SODIUM LEVEL 139 MEQ/L (136-145)
[2019-08-01 14:24] LABS: ERYTHROCYTE SEDIMENTATION RATE 39 mm/hr (0-20)
== END ==
LOC: M PLALAB 10:09
PROVIDERS: ATTEND Family Medicine
DX: L03.115 Cellulitis of right lower limb (principal); N18.3 Chronic kidney disease, stage 3 (moderate)

== ENCOUNTER → 2019-08-10 | Outpatient (CLI) | payer MEDICARE, BC, OTHER ==
--- NOTE | 2019-08-11 11:19 | REP ---
RIGHT LOWER EXTREMITY DUPLEX DOPPLER ARTERIAL ULTRASOUND: Real-time ultrasound evaluation and duplex Doppler interrogation of the right lower extremity arterial system is performed. Right common femoral artery and superficial femoral artery demonstrate triphasic waveforms. Popliteal artery demonstrates monophasic waveforms as do all the calf arteries. Moderate diffuse plaquing is seen throughout the right lower extremity arterial system. There is no duplex Doppler sonographic evidence of focal significant stenosis. Soft tissue edema limits evaluation of the tibial peroneal trunk and proximal posterior artery. Right Peak Systolic Velocity Common femoral artery 197.8 cm/s Profunda 116.6 cm/s Proximal SFA 186.9 cm/s Mid SFA 158.3 cm/s Distal SFA 167.5 cm/s Popliteal 131.4 cm/s Proximal TAYLOR 83.9 cm/s Tibial peroneal trunk 125.6 cm/s Proximal FIBERGLASS PRODUCT TESTER 71.1 cm/s Distal FIBERGLASS PRODUCT TESTER 137.2 cm/s Distal TAYLOR 78.7 cm/s Electronically Signed by Mars Rhodes MD 08/13/2019 10:24 P
== END ==
LOC: M RAD 14:23
PROVIDERS: ATTEND Surgery
DX: L97.812 Non-pressure chronic ulcer of other part of right lower leg with fat layer exposed (principal); I70.238 Atherosclerosis of native arteries of right leg with ulceration of other part of lower leg

== ENCOUNTER → 2019-08-13 | Outpatient (REF) | payer MEDICARE, OTHER, BC ==
[~2019-08-13] MED LIST changes: +AMLO1TAB24 PO; -AMLO5TAB6 PO; +HYDR-3490 PO; -HYDR25TAB PO; +PANT40TA29 PO; -PANT40TA3 PO
[2019-08-13 11:22] LABS: BASO # 0.1 10^3/uL (0.0-0.2); BASO % 0.5 % (0.0-1.0); EOS # 0.7 10^3/uL (0.0-0.5); EOS % 5.8 % (0.0-3.0); HEMATOCRIT 43.5 % (42.0-52.0); HEMOGLOBIN 14.6 g/dl (13.5-17.5); LYMPH # 1.5 10^3/uL (1.5-5.0); MEAN CORPUSCULAR HEMOGLOBIN 34.8 pg (27.0-33.0); MEAN CORPUSCULAR HGB CONC 33.6 g/dl (32.0-36.5); MEAN CORPUSCULAR VOLUME 103.6 fl (80.0-96.0); MONO # 1.1 10^3/uL (0.0-0.8); MONO % 9.4 % (0.0-5.0); NEUTROPHILS # 8.1 10^3/uL (1.5-8.5); NEUTROPHILS % 70.8 % (36.0-66.0); PLATELET COUNT, AUTOMATED 260 10^3/uL (150-450); WHITE BLOOD COUNT 11.4 10^3/uL (4.0-10.0)
[2019-08-13 11:24] LABS: BLOOD UREA NITROGEN 24 MG/DL (7-18); C REACTIVE PROTEIN QUANTITATIV 1.21 MG/DL (0.00-0.30); CALCIUM LEVEL 9.7 MG/DL (8.8-10.2); CARBON DIOXIDE LEVEL 30 MEQ/L (21-32); CHLORIDE LEVEL 106 MEQ/L (98-107); CREATININE FOR GFR 0.96 MG/DL (0.70-1.30); GLOMERULAR FILTRATION RATE > 60.0 (>35); GLUCOSE, FASTING 97 MG/DL (70-100); POTASSIUM SERUM 4.1 MEQ/L (3.5-5.1); SODIUM LEVEL 140 MEQ/L (136-145)
[2019-08-14 08:08] LABS: CREATININE, URINE 70.6 mg/dL (20.0-300.0)
== END ==
LOC: M SFHCPLAZ 09:02
PROVIDERS: ATTEND Family Medicine
DX: L97.812 Non-pressure chronic ulcer of other part of right lower leg with fat layer exposed (principal); L03.115 Cellulitis of right lower limb; N18.3 Chronic kidney disease, stage 3 (moderate); Z51.81 Encounter for therapeutic drug level monitoring
CPT/HCPCS: 36415; 80048; 80307; 85025; 86140; G0463

== ENCOUNTER → 2019-11-15 | Outpatient (REF) | payer MEDICARE, BC, OTHER ==
[~2019-11-15] MED LIST changes: -HYDR-3490 PO; +HYDR25TAB PO
== END ==
LOC: M LAB REF 11:54
PROVIDERS: ATTEND Surgery
DX: I87.311 Chronic venous hypertension (idiopathic) with ulcer of right lower extremity (principal); L97.812 Non-pressure chronic ulcer of other part of right lower leg with fat layer exposed

== ENCOUNTER → 2019-11-19 | Outpatient (REF) | payer MEDICARE, OTHER | LOC: M LAB REF 09:31 | PROVIDERS: ATTEND Surgery | DX: E11.621 Type 2 diabetes mellitus with foot ulcer (principal); L97.414 Non-pressure chronic ulcer of right heel and midfoot with necrosis of bone ==

== ENCOUNTER → 2019-12-12 | Outpatient (CLI) | payer MEDICARE, BC, OTHER ==
--- NOTE | 2019-12-17 14:22 | REP ---
MRI ABDOMEN WITHOUT CONTRAST HISTORY: Malignant carcinoid tumor, right upper quadrant pain, history of hemochromatosis. COMPARISON: Comparison MRI 03/03/2018. FINDINGS: Multiple sequences were obtained in the axial and coronal planes without the use of intravenous contrast. The liver demonstrates normal signal with no definite mass. The patient has had a prior cholecystectomy. There is no intrahepatic or extrahepatic biliary dilatation. Spleen is normal in size with no intrinsic abnormality. The adrenal glands are normal. No pancreatic mass is seen. The pancreatic duct is normal in caliber. The kidneys demonstrate no mass or hydronephrosis. No adenopathy or free fluid in the abdomen. There are no MR findings of hemochromatosis. IMPRESSION: No change since prior study of 03/03/2018. Patient is status post cholecystectomy. No new mass or adenopathy. No MR findings of hemochromatosis. MTDD
== END ==
LOC: M RAD 16:16
PROVIDERS: ATTEND Internal Medicine Hematology & Oncology
DX: C7A.00 Malignant carcinoid tumor of unspecified site (principal); Z90.49 Acquired absence of other specified parts of digestive tract

== ENCOUNTER → 2020-03-25 | Outpatient (REF) | payer MEDICARE, OTHER ==
[~2020-03-25] MED LIST changes: +HYDR-3490 PO; -HYDR25TAB PO
[2020-03-25 10:35] LABS: BASO % 0.5 % (0.0-1.0); EOS # 0.2 10^3/uL (0.0-0.5); EOS % 2.3 % (0.0-3.0); HEMATOCRIT 45.3 % (42.0-52.0); HEMOGLOBIN 15.3 g/dl (13.5-17.5); LYMPH # 1.6 10^3/uL (1.5-5.0); LYMPH % 18.1 % (24.0-44.0); MEAN CORPUSCULAR HEMOGLOBIN 33.7 pg (27.0-33.0); MEAN CORPUSCULAR HGB CONC 33.8 g/dl (32.0-36.5); MEAN CORPUSCULAR VOLUME 99.8 fl (80.0-96.0); MONO # 1.3 10^3/uL (0.0-0.8); MONO % 14.6 % (0.0-5.0); NEUTROPHILS # 5.5 10^3/uL (1.5-8.5); NEUTROPHILS % 64.2 % (36.0-66.0); PLATELET COUNT, AUTOMATED 202 10^3/uL (150-450); RED BLOOD COUNT 4.54 10^6/uL (4.30-6.10); WHITE BLOOD COUNT 8.6 10^3/uL (4.0-10.0)
[2020-03-25 10:55] LABS: ERYTHROCYTE SEDIMENTATION RATE 5 mm/hr (0-20)
[2020-03-25 11:06] LABS: C REACTIVE PROTEIN QUANTITATIV 0.5 MG/DL (0.00-0.30); CALCIUM LEVEL 10.4 MG/DL (8.8-10.2); CREATININE FOR GFR 1.26 MG/DL (0.70-1.30); GLOMERULAR FILTRATION RATE 58.3 (>35); POTASSIUM SERUM 4.4 MEQ/L (3.5-5.1)
== END ==
LOC: M SFHCPLAZ 08:56
PROVIDERS: ATTEND Family Medicine
DX: L03.115 Cellulitis of right lower limb (principal); I12.9 Hypertensive chronic kidney disease with stage 1 through stage 4 chronic kidney disease, or unspecified chronic kidney disease; N18.30 Chronic kidney disease, stage 3 unspecified
CPT/HCPCS: 36415; 80048; 85025; 85652; 86140; G0463

== ENCOUNTER → 2020-04-30 | Outpatient (REF) | payer MEDICARE, OTHER ==
[2020-04-30 18:27] LABS: BASO % 0.5 % (0.0-1.0); EOS # 0.4 10^3/uL (0.0-0.5); EOS % 4.1 % (0.0-3.0); HEMATOCRIT 46.4 % (42.0-52.0); HEMOGLOBIN 15.6 g/dl (13.5-17.5); LYMPH # 1.3 10^3/uL (1.5-5.0); LYMPH % 14.3 % (24.0-44.0); MEAN CORPUSCULAR HGB CONC 33.6 g/dl (32.0-36.5); MEAN CORPUSCULAR VOLUME 101.1 fl (80.0-96.0); MONO # 1.1 10^3/uL (0.0-0.8); MONO % 12.8 % (2.0-8.0); NEUTROPHILS % 67.5 % (36.0-66.0); PLATELET COUNT, AUTOMATED 228 10^3/uL (150-450); RED BLOOD COUNT 4.59 10^6/uL (4.30-6.10); WHITE BLOOD COUNT 8.9 10^3/uL (4.0-10.0)
[2020-04-30 18:41] LABS: C REACTIVE PROTEIN QUANTITATIV 12.3 MG/DL (0.00-0.30); CALCIUM LEVEL 9.3 MG/DL (8.8-10.2); CREATININE FOR GFR 1.59 MG/DL (0.70-1.30); GLOMERULAR FILTRATION RATE 44.6 (>35); POTASSIUM SERUM 4.2 MEQ/L (3.5-5.1)
[2020-04-30 21:00] LABS: ERYTHROCYTE SEDIMENTATION RATE 34 mm/hr (0-20)
== END ==
LOC: M SFHCPLAZ 14:26
PROVIDERS: ATTEND Family Medicine
DX: L03.115 Cellulitis of right lower limb (principal)
CPT/HCPCS: 36415; 80048; 85025; 85652; 86140; G0463

== ENCOUNTER → 2020-05-08 | Outpatient (REF) | payer MEDICARE, OTHER ==
[2020-05-08 16:25] LABS: CALCIUM LEVEL 9.2 MG/DL (8.8-10.2); CREATININE FOR GFR 1.62 MG/DL (0.70-1.30); GLOMERULAR FILTRATION RATE 43.6 (>35)
== END ==
LOC: M SFHCPLAZ 14:04
PROVIDERS: ATTEND Family Medicine
DX: R94.4 Abnormal results of kidney function studies (principal)
CPT/HCPCS: 36415; 80048; G0463

== ENCOUNTER → 2022-05-26 | Outpatient (REF) | payer MEDICARE, OTHER ==
[~2022-05-26] MED LIST changes: +BACTDSTA PO; -KLOR10TA76 PO; -OMEP10CA78 PO; +OMEP1CAP71 PO; +POTA-136 PO; -SULF1TAB93 PO
== END ==
LOC: M SFHCDERM 13:56
PROVIDERS: ATTEND Physician Assistant
DX: C44.329 Squamous cell carcinoma of skin of other parts of face (principal)